=== PATIENT | female | born 1965 | race Caucasian/White ===

== ENCOUNTER 2016-08-20 04:28 | Inpatient (IN) | payer OTHER ==
[~2016-08-20] VITALS: Ht 152.4 cm; Wt 45.0 kg
[~2016-08-20 04:28] MED LIST: CLON2TAB15; METH-378
[2016-08-20 09:28] VITALS: PULSE 108
[2016-08-20 09:30] VITALS: BP 109/51; PULSE 113; RESP 18; Ht 152.4 cm; Wt 45.0 kg
[2016-08-20 09:58] VITALS: BP 102/74; RESP 20
--- NOTE | 2016-08-20 10:35 | PDOCDIS ---
Discharge Instructions CONDITION Patient Condition: Good HOME CARE INSTRUCTIONS: Diet Instructions: Regular ACTIVITY: Activity Restrictions: No Restrictions FOLLOW UP/APPOINTMENTS Appointments F/U WITH YOUR PCP IN 1-2 WEEKS LINNEA FUENTES Aug 20, 2016 10:34
[2016-08-20] MEDS ORDERED: ONDANSETRON 4 MG INJ IV PRN (11:00)
[2016-08-20] MEDS ORDERED: ALBUTEROL/IPRATROPIUM (NEB) 3 ML AMP HHN PRN (11:00)
[2016-08-20] MEDS ORDERED: NACL 0.9% 3 ML SYG IV SCH (11:00)
[2016-08-20] MEDS ORDERED: METHADONE (1 MG/ML 5 ML PO UD SYG) PO SCH ×2 (11:30)
[2016-08-20] MEDS ORDERED: METHADONE HCL 10 MG/ML (1ML) POSYG PO SCH (11:30)
[2016-08-20 11:48] VITALS: BP 94/63; RESP 22
[2016-08-20 12:24] VITALS: PULSE 112
--- NOTE | 2016-08-20 14:47 | PSY ---
Date/Time of Note Date/Time of Note DATE: 08/20/16 TIME: 14:41 Psychiatric Subjective Eval Consent Pt consented to telemedicine: Yes Subjective Evaluation Patient location: inpatient Chief Complaint: I am collapsing Reason for consult: Is patient stable for discharge History of present illness Patient was transferred to inpatient for respiratory issues. However, she appears medically stable and ready for discharge. But patient cannot report a plan for self care and consult was made. Patient states that some changed her DNA, she pleads the 5th, lithium can stay in your brain forever, FDA, Constitution and other non-sense statements. She is angry, loud and is a poor historian. She was not able to provide any plan for her own self care. Past psychiatric history States she had her "genetic molecules taken out of her as a child" while in a psychiatric hospital. And she has been "pumped up with antipsychotics." Hospitalization: yes Family History Unknown Medical history Unknown Allergies: Coded Allergies: Sulfa (Sulfonamide Antibiotics) (Verified Allergy, Mild, 12/07/10) Substance Abuse Prior substance abuse treatmen: Yes (Methadone) Social History Marital status: Level of education: Unknown DPA/Conservatorship: No Occupation/Skilled Nursing: Homeless. Psychiatric Objective Eval Mental Status Examination: Appearance: Poor Hygiene, Disheveled Eye Contact: Fair Psychomotor Activity: Agitated Behavior: Agitated Speech: Pressured, Loud AFFECT: Intense Mood: Irritable Though Process: FOI Thought Content: Delusions, Hallucinations Suicidal: No Homicidal: No On 72 hour hold: No Cognition: Alert Insight: Severe Judgement: Severe Attention Span: Distractible Assessment and Plan Assessment/Diagnosis [place] I: Unspecified Psychotic Disorder (possibly naomy versus schizoaffective, bipolar type) Recommendation/Plan Medication Management Recommend Zyprexa 5mg po qhs, first dose now, if patient will take. If will not take, consider Ativan to help control agitation while waiting for placement. Psychotherapy N/A Pt. Caregiver/Family Education N.A Follow-up/Disposition Recommend hold for grave disability and transfer to inpatient psychiatry. [id number] Recommendation: Place NAINA Mcnamara Aug 20, 2016 14:47
[2016-08-20 16:00] VITALS: PULSE 94
--- NOTE | 2016-08-20 16:39 | HP ---
DATE OF ADMISSION: 08/20/2016 CHIEF COMPLAINT: Shortness of breath. HISTORY OF PRESENT ILLNESS: The patient is a 50-year-old female with a history of what appears to b e schizophrenia as well as a heroin addiction. Patient is on methadone. Patient is not on any psyc hiatric medications. The patient was in [facility] and was diagnosed with COPD exacerbatio n and reportedly was requiring oxygen, but here at [facility] she has not been taking any o xygen and she is saturating well on room air. She has no active medical issues. The patient was ev aluated by tele/psych and was felt to suffer from possible schizoaffective disorder versus unspecifi ed psychiatric disorder. The patient is not felt to be stable for discharge to the streets as she i s a danger to herself. The patient is extremely psychotic at this time and is unable to provide any significant history. PAST MEDICAL HISTORY: Psychiatric disorder and heroin abuse, on methadone. PAST SURGICAL HISTORY: Unknown. HOME MEDICATIONS: Unknown. She denies taking any except for methadone. ALLERGIES: SULFA. FAMILY HISTORY: Unknown. SOCIAL HISTORY would be a history of heroin use, on methadone. Patient is reportedly homeless, but it is unclear. REVIEW OF SYSTEMS: A 12-point review of systems difficult to obtain secondary to her poor mentation . PHYSICAL EXAMINATION: VITAL SIGNS: Temperature is 98.4, pulse 112, respiratory rate is 22, BP is 94/63, saturation 96% on 2 liters. GENERAL: No acute distress, psychotic. HEENT: Normocephalic, atraumatic. LUNGS: Clear to auscultation. CARDIOVASCULAR: Regular rate and rhythm. ABDOMEN: Nondistended, nontender, soft. EXTREMITIES: No clubbing, cyanosis, or edema. LABORATORIES: Labs at [facility] were reportedly within normal limits. ASSESSMENT AND PLAN: 1. Psychiatric disorder. The patient has been evaluated by telemetry/psychiatry. It was felt that patient cannot to care for herself, hence she should be transferred to a psychiatric facility . fruit or nut farmworker is aware and PET team is to evaluate. Psychiatrist has started the patient on Zypr exa 5 mg p.o. at bedtime. If the patient will not take it then Ativan can be considered to help wit h agitation. The patient is reportedly not on any psychiatric medications as she states that the me dications mess with her head. 2. Chronic obstructive pulmonary disease. The patient may have a history of chronic obstructive pu lmonary disease, but currently, she is medically stable. She is not requiring oxygen and does not n eed any antibiotics or any steroids. Will give DuoNeb p.r.n. 3. Prophylaxis. Ambulation. Dictated By: LINNEA VILLALOBOS/MARYLOU Conf#: [id number] DID#: [id number]
[2016-08-21] MEDS ORDERED: METHADONE (1 MG/1 ML PO SYG) PO SCH (09:00)
== END 2016-08-20 18:23 | disposition left against medical advice (07) | DRG 192 ==
LOC: MS4 08:54 → PP2 18:11
PROVIDERS: ADMIT Internal Medicine; ATTEND Internal Medicine
DX: J44.9 Chronic obstructive pulmonary disease, unspecified (principal); F99 Mental disorder, not otherwise specified

== ENCOUNTER 2016-08-27 10:35 | Inpatient (IN) | payer OTHER ==
[~2016-08-27] VITALS: Ht 157.5 cm; Wt 32.5 kg
[2016-08-27] MEDS ORDERED: LEVALBUTEROL (NEB) 1.25 MG/0.5 ML AMP INH STA (10:57)
[2016-08-27] MEDS ORDERED: IPRATROPIUM (NEB) 0.5 MG/2.5 ML AMP NEB STA (10:57)
[2016-08-27] MEDS ORDERED: SOD CHLORIDE 0.9% 1,000 ML IV STA (10:57)
[2016-08-27] MEDS ORDERED: METHYLPREDNISOLONE 125 MG INJ IV STA (10:57)
[2016-08-27] MEDS ORDERED: OLANZAPINE (ODT) 5 MG TAB ODT ONE (11:00)
[2016-08-27] MEDS ORDERED: AZITHROMYCIN 500MG/NS (PMX) 250 ML IVPB ONE (11:30)
[2016-08-27] MEDS ORDERED: METHYLPREDNISOLONE 125 MG INJ IM ONE (12:00)
[2016-08-27] MEDS ORDERED: AZITHROMYCIN 250 MG TAB PO ONE (12:00)
[2016-08-27] MEDS ORDERED: LIDOCAINE 1% (MDV) 20 ML INJ SC ONE (12:00)
[2016-08-27] MEDS ORDERED: CLON2TAB3 PO (12:15)
[2016-08-27] MEDS ORDERED: METH10TA2 PO (12:16)
--- NOTE | 2016-08-27 12:21 | RADRPT ---
PROCEDURE: XR Chest. CLINICAL INDICATION: Asthma exacerbation TECHNIQUE: Single frontal view of the chest was obtained. COMPARISON: 02/04/2014 FINDINGS: The cardiomediastinal silhouette is normal size. There is mild to moderate aortic calcification. Pul monary vasculature is within normal limits. The lungs are clear. No signs of pleural fluid or pneumothorax are seen. The osseous structures and soft tissues are unre markable. The patient is status post left mastectomy. IMPRESSION: No evidence for active cardiopulmonary disease. Mild to moderate aortic calcification. RPTAT: HBST .John Comer MD, MD Date Time Electronically viewed and signed by .John Comer MD, on 08/27/2016 12:21 .T/
[2016-08-27 12:27] LABS: ADD SCAN DIFF NO
[2016-08-27] MEDS ORDERED: clonAZEPAM 0.5 MG TAB PO ONE (12:30)
[2016-08-27 12:32] LABS: BASOPHILS % 0.2 % (0.0-2.0); EOSINOPHILS # 0.1 10^3/ul (0.0-0.5); EOSINOPHILS % 0.3 % (0.0-7.0); HEMATOCRIT 46.3 % (37.0-47.0); HEMOGLOBIN 15.1 g/dl (12.0-16.0); LYMPHOCYTES # 1.8 10^3/ul (0.8-2.9); MEAN CORPUSCULAR HEMOGLOBIN 28.8 pg (29.0-33.0); MEAN CORPUSCULAR HGB CONC 32.6 g/dl (32.0-37.0); MEAN CORPUSCULAR VOLUME 88.4 fl (82.0-101.0); MONOCYTE # 1.1 10^3/ul (0.3-0.9); MONOCYTES % 5.6 % (0.0-11.0); NEUTROPHIL # 16.3 10^3/ul (1.6-7.5); NEUTROPHILS % 84.3 % (39.0-77.0); PLATELET COUNT 299 10^3/UL (140-415); RED BLOOD COUNT 5.24 10^6/ul (4.20-5.40); RED CELL DISTRIBUTION WIDTH 13.4 % (11.5-14.5); WHITE BLOOD COUNT 19.4 10^3/ul (4.8-10.8)
[2016-08-27 12:36] LABS: CHLORIDE 104 mmol/L (97-110)
[2016-08-27 12:37] LABS: POTASSIUM 4.3 mmol/L (3.5-5.1); SODIUM 147 mmol/L (135-144)
[2016-08-27 12:39] LABS: ANION GAP 17 (8-16); CARBON DIOXIDE 30 mmol/L (21-31); CREATININE 0.62 mg/dl (0.44-1.00)
[2016-08-27 12:40] LABS: BLOOD UREA NITROGEN 10 mg/dl (7-20); CALCIUM 9.5 mg/dl (8.4-10.2); GLUCOSE 118 mg/dl (70-220)
[2016-08-27 12:43] LABS: ACETAMINOPHEN < 10.0 ug/ml (10.0-30.0); ETHANOL < 10.0 mg/dl; SALICYLATE < 1.0 mg/dl (5.0-30.0)
[2016-08-27 12:54] LABS: TROPONIN-I < 0.012 ng/ml (0.00-0.12)
[2016-08-27] MEDS ORDERED: ACETAMINOPHEN 325 MG TAB PO PRN ×2 (13:00→14:00)
[2016-08-27] MEDS ORDERED: ONDANSETRON 4 MG INJ IV PRN ×2 (13:00→14:00)
--- NOTE | 2016-08-27 13:06 | ERA ---
ER Documentation Chief Complaint Date/Time DATE: 08/27/16 TIME: 13:04 Chief Complaint sob this morning after receiving her dose of methadone at the methadone i HPI Patient is a 50-year-old female with COPD who presents saying that she cannot breathe. Please note the history and physical exam is limited as the patient also appears to be having an acute psychosis. She says "they try to lie bottom eyes me and the dolls are trying to control me". She says that they are trying to get into her head through the dolls. Upon review of old medical records the patient has multiple visits to the ER for various complaints. It is difficult to obtain history otherwise. ROS All systems reviewed and are negative except as per history of present illness. Medications Home Meds Reported Medications Methadone Hcl* (Methadone*) 10 Mg Tab, 16 MG PO DAILY, TAB PER PT GETS RX AT [facility] 08/27/16 Clonazepam* (Clonazepam*) 2 Mg Tablet, 2 MG PO TID, TAB 08/27/16 Discontinued Reported Medications Clonazepam (Klonopin) 2 Mg Tablet 06/08/10 Methadone Hcl (Methadone) 10 Mg Tab 06/08/10 Allergies Allergies: Coded Allergies: Sulfa (Sulfonamide Antibiotics) (Verified Allergy, Mild, 12/07/10) PMhx/Soc History of Surgery: No Hx Neurological Disorder: No Hx Respiratory Disorders: Yes (copd per pt ) Hx Cardiac Disorders: No Hx Psychiatric Problems: Yes Hx Miscellaneous Medical Probl: Yes (may be living in her car, ) Hx Alcohol Use: No Hx Substance Use: Yes Hx Tobacco Use: No FmHx Family History: No diabetes Physical Exam Vitals Vital Signs Date Time Temp Pulse Resp B/P Pulse Ox O2 Delivery O2 Flow Rate FiO2 08/27/16 11:13 127 22 97 21 08/27/16 10:48 98.4 135 20 146/99 96 Room Air 08/27/16 10:45 98.2 135 20 205/79 94 Physical Exam Const: Acute psychosis Head: Atraumatic Eyes: Normal Conjunctiva ENT: Normal External Ears, Nose and Mouth. Neck: Full range of motion..~ No meningismus. Resp: Decreased breath sounds bilaterally Cardio: Tachycardic rate without murmur Abd: Soft, non tender, non distended. Normal bowel sounds Skin: No petechiae or rashes Back: No midline or flank tenderness Ext: No cyanosis, or edema Neur: Awake Psych: Acute psychosis Result Diagram: 08/27/16 1220 08/27/16 1220 Results 24 hrs Laboratory Tests Test 08/27/16 12:20 Acetaminophen Level < 10.0ug/ml Anion Gap 17 Basophils # 0.010^3/ul Basophils % 0.2% Blood Urea Nitrogen 10mg/dl Calcium Level 9.5mg/dl Carbon Dioxide Level 30mmol/L Chloride Level 104mmol/L Creatinine 0.62mg/dl Eosinophils # 0.110^3/ul Eosinophils % 0.3% Ethyl Alcohol Level < 10.0mg/dl Glucose Level 118mg/dl Hematocrit 46.3% Hemoglobin 15.1g/dl Lymphocytes # 1.810^3/ul Lymphocytes % 9.0% Mean Corpuscular Hemoglobin 28.8pg Mean Corpuscular Hemoglobin Concent 32.6g/dl Mean Corpuscular Volume 88.4fl Mean Platelet Volume 10.0fl Monocytes # 1.110^3/ul Monocytes % 5.6% Neutrophils # 16.310^3/ul Neutrophils % 84.3% Nucleated Red Blood Cells # 0.010^3/ul Nucleated Red Blood Cells % 0.0/100WBC Platelet Count 25265^3/UL Potassium Level 4.3mmol/L Red Blood Count 5.2410^6/ul Red Cell Distribution Width 13.4% Salicylates Level < 1.0mg/dl Sodium Level 147mmol/L Troponin I < 0.012ng/ml White Blood Count 19.410^3/ul Current Medications Medications (Trade) Dose Ordered Sig/Kallie Route PRN Reason Start Time Stop Time Status Last Admin Dose Admin Sodium Chloride (NS) 1,000 ml @ 1,000 mls/hr Q1H STAT IV 08/27/16 10:57 08/27/16 11:56 DC Ipratropium Duncan (Atrovent 0.02% (Neb)) 0.5 mg ONCE STAT NEB 08/27/16 10:57 08/27/16 10:59 DC 08/27/16 11:11 Methylprednisolone Sodium Succinate (Solu-Medrol) 125 mg ONCE STAT IV 08/27/16 10:57 08/27/16 11:40 DC Levalbuterol (Xopenex Neb) 1.25 mg ONCE STAT INH 08/27/16 10:57 08/27/16 10:59 DC 08/27/16 11:11 Olanzapine 5 mg 5 mg ONCE ONCE ODT 08/27/16 11:00 08/27/16 11:01 DC 08/27/16 12:31 Azithromycin (Zithromax 500mg/ NS (Pmx)) 250 ml @ 250 mls/hr ONCE ONCE IVPB 08/27/16 11:30 08/27/16 11:40 DC Methylprednisolone Sodium Succinate (Solu-Medrol) 125 mg ONCE ONCE IM 08/27/16 12:00 08/27/16 12:01 DC 08/27/16 12:32 Azithromycin (Zithromax) 500 mg ONCE ONCE PO 08/27/16 12:00 08/27/16 12:01 DC 08/27/16 12:32 Lidocaine (Xylocaine 1% (Mdv) 20 ml) 20 ml ONCE ONCE SC 08/27/16 12:00 08/27/16 12:01 DC Clonazepam (Klonopin) 1 mg ONCE ONCE PO 08/27/16 12:30 08/27/16 12:31 DC 08/27/16 12:31 Ondansetron HCl (Zofran Inj) 4 mg BRIDGE ORDER PRN IV NAUSEA AND/OR VOMITING 08/27/16 13:00 08/28/16 12:59 Acetaminophen (Tylenol Tab) 650 mg ER BRIDGE PRN PO MILD PAIN/FEVER 08/27/16 13:00 08/28/16 12:59 Procedures/MDM Chest x-ray pending at this time. Smoking Cessation Therapy: Pt. was lectured for greater than 3 minutes on the health risks of continued smoking and the benefits of cessation. Patient is a 50-year-old female with COPD who presents with what appears to be an acute COPD exacerbation. This is also complicated by the fact that she appears to have acute psychosis. She has had a tele-psychiatry evaluation and I gave Zyprexa and Klonopin for her psychosis. The patient was treated with Xopenex, Atrovent, Solu-Medrol, and Zithromax. Unfortunately she cannot be medically cleared at this time because of the COPD exacerbation and will need admission to the hospital. I spoke with Dr. Moya from the panel team for admission as [facility]. The patient will be admitted to a medical surgical bed. She will likely need psychiatric care after she is medically clear. Critical Care: Time: 35 minutes excluding all billable procedures. Treatments/Evaluations: Close monitoring and treatment of unstable vital signs, cardiorespiratory, and neurologic status, while maintaining tight balance of fluid, respiratory, and cardiac interventions. Departure Diagnosis: Primary Impression: COPD exacerbation Additional Impressions: Shortness of breath Psychosis Qualified Code: F29 - Psychosis, unspecified psychosis type Condition: EMMANUEL Miller MD Aug 27, 2016 13:06
[2016-08-27] MEDS ORDERED: OLANZAPINE 5 MG TAB PO ONE (14:00)
[2016-08-27] MEDS ORDERED: DOCUSATE SODIUM 100 MG CAP PO PRN (14:00)
[2016-08-27] MEDS ORDERED: ALBUTEROL/IPRATROPIUM (NEB) 3 ML AMP HHN PRN (14:00)
[2016-08-27] MEDS ORDERED: ACETAMINOPHEN 650 MG SUPP PR PRN (14:00)
[2016-08-27] MEDS ORDERED: NACL 0.9% 3 ML SYG IV SCH (14:00)
[2016-08-27] MEDS ORDERED: BISACODYL 10 MG SUPP PR PRN (14:00)
--- NOTE | 2016-08-27 15:06 | RADRPT ---
PROCEDURE: XR Chest. CLINICAL INDICATION: PICC placement. TECHNIQUE: Chest x-ray, single view. COMPARISON: 08/27/2016 at 1151 hours. FINDINGS: The cardiomediastinal silhouette is normal. Hyperinflation is present. The lungs are clear. A left upper extremity PICC is in place and terminates at the SVC/right atrial junction , which is satisf actory in position. Skeletal structures and upper abdomen are unremarkable. IMPRESSION: Satisfactory positioning of left upper extremity PICC. RPTAT: QQ .Neema Mcneal MD, MD Date Time Electronically viewed and signed by .Neema Mcneal MD, MD on 08/27/2016 15:06 .T/
--- NOTE | 2016-08-27 15:39 | HP ---
DATE OF ADMISSION: 08/27/2016 PARTS PICKER: Telemetry/Psychiatric HISTORY OF PRESENT ILLNESS: This is a 50-year-old female with past medical history of COPD, heroin abuse in remission on methadone, psychosis, schizophrenia who presented to [facility] this morning secondary to having shortness of breath after she received a dose of methadone. Th e patient's history is limited secondary to patient appears to have an acute psychosis and the patie nt is having hallucinations and delusion, stating that they have put bugs through her arms and other people are trying to control her. The patient denies having any chest pain, headache, dizziness, l ightheadedness. No change in visual acuity, diplopia, photophobia. No abdominal pain. The rest of the history is limited as stated above. PAST MEDICAL AND SURGICAL HISTORY: 1. History of heroin abuse. 2. Methadone 3. Schizophrenia. 4. History of psychosis. 5. Chronic obstructive pulmonary disease. 6. Nicotine dependency. MEDICATIONS: 1. Clonazepam. 2. Methadone. ALLERGIES: SULFA. FAMILY HISTORY: Noncontributory. REVIEW OF SYSTEMS: Limited. Otherwise, the 12 review of systems has been negative except for what was stated above HPI. PHYSICAL EXAMINATION: VITAL SIGNS: Temperature 98.4, pulse 127, respiration 22, blood pressure 146/99, oxygen 97% in room air. GENERAL APPEARANCE: The patient is sitting up in bed, very groggy, although the patient is able to follow commands. Body habitus within normal limit. EYES AND ENT: Conjunctivae and lids are normal. Pupils are normal. Extraocular normal. Hearing g rossly normal. Lips are normal. Oral mucosa is dry. NECK: Supple. Trachea is midline. No lymphadenopathy. RESPIRATORY: Effort is normal. Clear to auscultate bilaterally. CARDIOVASCULAR: Normal S1, S2. Regular rhythm and rate. No murmur, no bruits, no edema. Peripher al pulses, radial pulses palpable. Cap refill is normal. CHEST: Normal expansion of thorax during inspiration. GASTROINTESTINAL: Abdomen is soft, nontender, not distended. Bowel sounds present. No guarding, n o rebound. GENITOURINARY: Deferred. MUSCULOSKELETAL: Upper and lower extremities within normal limits. Full range of motion. NEUROLOGIC: The patient is awake. PSYCHIATRIC EXAMINATION: Mood and affect, the patient is having hallucination. She is oriented to self and place, although patient has been having hallucinations and delusions regarding that she is seeing dolls, and other people have place bugs inside of her body to control her. ASSESSMENT AND PLAN: 1. Chronic obstructive pulmonary disease exacerbation. 2. History of heroin abuse, on methadone. 3. Psychosis/schizophrenia. The patient will be started on Zyprexa that she used to be on, on prio r admissions as per telemetry/psychiatric recommendations. 3. For her COPD, the patient has been placed on DuoNeb. We will also place the patient on azithrom ycin and prednisone. 4. For deep venous thrombosis prophylaxis, placed the patient on Lovenox. 5. We will continue to monitor patient closely. Further recommendations, management, and treatment as per clinical course. Dictated By: DEBBIE BOURGEOIS/MARYLOU Conf#: [id number] DID#: [id number]
[2016-08-27] MEDS ORDERED: HEPARIN (10 UNITS/ML) 5ML SYG IV ONE (19:00)
[2016-08-27 20:36] VITALS: TEMP 98
[2016-08-27] MEDS: FAMOTIDINE 20 MG TAB PO SCH (21:07)
[2016-08-27] MEDS: clonAZEPAM 0.5 MG TAB PO SCH (21:07)
[2016-08-27 21:10] VITALS: Ht 157.5 cm; Wt 32.5 kg
[2016-08-27 22:00] VITALS: BP 122/74; RESP 20
[2016-08-27 23:01] LABS: BENZODIAZEPINES Positive (NEGATIVE)
[2016-08-27 23:04] LABS: BARBITURATES Negative (NEGATIVE); CANNABINOIDS Negative (NEGATIVE); COCAINE Negative (NEGATIVE); OPIATES Positive (NEGATIVE)
[2016-08-28] MEDS: LORAZEPAM 2 MG INJ IV PRN ×3 (00:17→13:14)
[2016-08-28 06:12] LABS: ADD SCAN DIFF NO
[2016-08-28 06:19] LABS: ABNORMAL IP MESSAGE 1; BASOPHILS % 0.2 % (0.0-2.0); HEMATOCRIT 38.3 % (37.0-47.0); HEMOGLOBIN 12.4 g/dl (12.0-16.0); LYMPHOCYTES # 1.3 10^3/ul (0.8-2.9); LYMPHOCYTES % 5.5 % (15.0-51.0); MEAN CORPUSCULAR HEMOGLOBIN 28.7 pg (29.0-33.0); MEAN CORPUSCULAR HGB CONC 32.4 g/dl (32.0-37.0); MEAN CORPUSCULAR VOLUME 88.7 fl (82.0-101.0); MEAN PLATELET VOLUME 11.2 fl (7.4-10.4); MONOCYTE # 1.4 10^3/ul (0.3-0.9); MONOCYTES % 5.7 % (0.0-11.0); NEUTROPHILS % 87.6 % (39.0-77.0); PLATELET COUNT 260 10^3/UL (140-415); RED BLOOD COUNT 4.32 10^6/ul (4.20-5.40); RED CELL DISTRIBUTION WIDTH 13.6 % (11.5-14.5); WHITE BLOOD COUNT 23.9 10^3/ul (4.8-10.8)
[2016-08-28 06:36] LABS: ALBUMIN 3.5 g/dl (3.3-4.9)
[2016-08-28 06:37] LABS: POTASSIUM 4.7 mmol/L (3.5-5.1)
[2016-08-28 06:39] LABS: ALBUMIN/GLOBULIN RATIO 1.06; BILIRUBIN,INDIRECT 0.5 mg/dl (0-1.1); BILIRUBIN,TOTAL 0.5 mg/dl (0.2-1.3); CREATININE 0.65 mg/dl (0.44-1.00); TOTAL PROTEIN 6.8 g/dl (6.1-8.1)
[2016-08-28 06:40] LABS: CALCIUM 9.1 mg/dl (8.4-10.2); MAGNESIUM 1.9 mg/dl (1.7-2.5)
[2016-08-28 07:25] VITALS: BP 93/65; RESP 18
[2016-08-28] MEDS: FAMOTIDINE 20 MG TAB PO SCH ×2 (07:45→21:00)
[2016-08-28] MEDS: clonAZEPAM 0.5 MG TAB PO SCH ×3 (07:45→21:00)
[2016-08-28] MEDS: OLANZAPINE 5 MG TAB PO SCH ×2 (08:40→09:00)
[2016-08-28] MEDS: ENOXAPARIN 40 MG/0.4 ML SYG SC SCH (08:42)
[2016-08-28] MEDS: METHADONE (1 MG/ML 5 ML PO UD SYG) PO SCH (10:40)
--- NOTE | 2016-08-28 11:38 | PSY ---
Date/Time of Note Date/Time of Note DATE: 08/28/16 TIME: 11:28 Psychiatric Subjective Eval Consent Pt consented to telemedicine: Yes Subjective Evaluation Patient location: emergency Chief Complaint: sob this morning after receiving her dose of methadone [facility] Reason for consult: hallucinations History of present illness patient is a 50 yo female with PPH Of depression, anxiety and opiate abuse on methadone who was sent to the ER from her methadone clinic where she was disorganized and psychotic, IN the ER she continued to be disorganized and she was admitted to the medical unit due to COPD exacerbation. During the interview , she is totally delusional, talking about witnessing a friend being cooked in a microwave and her organs being removed from her body and having had a lobotomy and a chip put in her head with people controlling her, she is responding to internal stimuli, pressured, with flight of ideas, illogical, yelling and cursing at staff. denies any si or hi. Past psychiatric history past psych admission yes Family History denies Medical history Problems Medical Problems: (1) COPD exacerbation Status: Acute (2) Psychosis Status: Acute (3) Shortness of breath Status: Acute Allergies: Coded Allergies: Sulfa (Sulfonamide Antibiotics) (Verified Allergy, Mild, 12/07/10) Substance Abuse Substance abuse history: Yes Prior substance abuse treatmen: Yes Social History Marital status: single Level of education: hs DPA/Conservatorship: No Occupation/Fdc: unemployed Psychiatric Objective Eval Review of Systems: Review of Systems: Not Applicable Physical Examination: Physical Examination: Applicable Sleep: Insomnia Appetite: Decreased Energy: Decreased Interest: Decreased Mental Status Examination: Appearance: Disheveled Eye Contact: Good Psychomotor Activity: Agitated Behavior: Cooperative, Hostile Speech: Disorganized AFFECT: Libile Mood: Irritable Though Process: Loose Thought Content: Delusions Suicidal: No Homicidal: No On 72 hour hold: No Orientation: x1 Insight: Impared Judgement: Impared Attention Span: Distractible Laboratory Results Laboratory Tests Test 08/27/16 12:20 08/27/16 22:34 08/28/16 04:45 Acetaminophen Level < 10.0ug/ml Anion Gap Basophils # 0.010^3/ul 0.010^3/ul Basophils % 0.2% 0.2% Blood Urea Nitrogen 10mg/dl 21mg/dl Calcium Level 9.5mg/dl 9.1mg/dl Carbon Dioxide Level 30mmol/L 30mmol/L Chloride Level 104mmol/L 103mmol/L Creatinine 0.62mg/dl 0.65mg/dl Eosinophils # 0.110^3/ul 0.010^3/ul Eosinophils % 0.3% 0.0% Ethyl Alcohol Level < 10.0mg/dl Glucose Level 118mg/dl 98mg/dl Hematocrit 46.3% 38.3% Hemoglobin 15.1g/dl 12.4g/dl Lymphocytes # 1.810^3/ul 1.310^3/ul Lymphocytes % 9.0% 5.5% Mean Corpuscular Hemoglobin 28.8pg 28.7pg Mean Corpuscular Hemoglobin Concent 32.6g/dl 32.4g/dl Mean Corpuscular Volume 88.4fl 88.7fl Mean Platelet Volume 10.0fl 11.2fl Monocytes # 1.110^3/ul 1.410^3/ul Monocytes % 5.6% 5.7% Neutrophils # 16.310^3/ul 21.010^3/ul Neutrophils % 84.3% 87.6% Nucleated Red Blood Cells # 0.010^3/ul 0.010^3/ul Nucleated Red Blood Cells % 0.0/100WBC 0.0/100WBC Platelet Count 09935^3/UL 57932^3/UL Potassium Level 4.3mmol/L 4.7mmol/L Red Blood Count 5.2410^6/ul 4.3210^6/ul Red Cell Distribution Width 13.4% 13.6% Salicylates Level < 1.0mg/dl Sodium Level 147mmol/L 141mmol/L Troponin I < 0.012ng/ml White Blood Count 19.410^3/ul 23.910^3/ul Urine Amphetamines Screen Negative Urine Barbiturates Negative Urine Benzodiazepines Screen Positive Urine Cannabinoids Negative Urine Cocaine Screen Negative Urine Opiates Screen Positive Alanine Aminotransferase (ALT/SGPT) 22IU/L Albumin 3.5g/dl Albumin/Globulin Ratio 1.06 Alkaline Phosphatase 62IU/L Aspartate Amino Transf (AST/SGOT) 25IU/L Direct Bilirubin 0.00mg/dl Globulin 3.30g/dl Indirect Bilirubin 0.5mg/dl Magnesium Level 1.9mg/dl Total Bilirubin 0.5mg/dl Total Protein 6.8g/dl Assessment and Plan Assessment/Diagnosis [place] I: psychosis nos [place] II: deferred [place] III: as per record [place] IV: poor social support [place] V: gaf 25 Recommendation/Plan Medication Management haldol 5 mg im with ativan 2 mg m and benadryl 50 mg im stat for acute psychosis and agitation and then po tid until psychosis resolved Follow-up/Disposition transfer patient to psych unit once medically cleared due to grave disability, she needs to be put on a 5150 hold for GD, DTS and DTO Patient cannot be treated at a lower level of care today due to GRAVE DISABLITY including an inability to carry out basic transactions necessary for survival in these areas and as evidenced by these behaviors: - Unable to seek out Food, Unable to seek out Clothing, Unable to seek out Mcfp, Severe Financial Incompetence, Severe Failure to Adjust in the Community, Severe Incompetence in Regards to Health Self-Management - Patient is labile,intrusive and socially inappropriate with personal boundaries - Confused, disoriented and/or grossly unable to distinguish reality from illusion -Requires near constant monitoring to prevent inadvertent danger to self and others -No family members willing and able to care for patient in the community with this mental state 5150 Recommendation: INOCENTE Regalado MD Aug 28, 2016 11:38
[2016-08-28 12:46] VITALS: BP 128/88; PULSE 93; RESP 18
[2016-08-28] MEDS ORDERED: HALOPERIDOL 5 MG INJ IM PRN (13:00)
--- NOTE | 2016-08-28 14:48 | PN ---
Date/Time of Note Date/Time of Note DATE: 08/28/16 TIME: 14:43 Assessment/Plan VTE Prophylaxis VTE Prophylaxis Intervention: SCD's Lines/Catheters IV [facility] Type (from [facility]): PICC Line Central line still needed: Yes Urinary Cath still in place: No Assessment/Plan Chief Complaint/Hosp Course ASSESSMENT AND PLAN: 1. Chronic obstructive pulmonary disease exacerbation. Continue breathing treatment as needed 2. History of heroin abuse, on methadone. 3. Psychosis/schizophrenia. The patient will be started on Zyprexa , status post evaluation by telemetry psych, has been refusing her meds 4. For deep venous thrombosis prophylaxis, placed the patient on Lovenox. We will continue to monitor patient closely. Further recommendations, management, and treatment as per clinical course. Problems: Subjective 24 Hr Interval Summary Free Text/Dictation Patient continues to have episodes of hallucinations and delusions Has been seen and evaluated by telemetry psych She has been refusing her psych medications Exam/Review of Systems Vital Signs Vitals Vital Signs Date Time Temp Pulse Resp B/P Pulse Ox O2 Delivery O2 Flow Rate FiO2 08/28/16 12:46 93 18 128/88 08/28/16 07:25 97.5 95 08/27/16 20:36 Nasal Cannula 2.0 08/27/16 11:13 21 Intake and Output 08/27/16 08/27/16 08/28/16 15:00 23:00 07:00 Intake Total 600 ml Balance 600 ml Exam General: The patient is well-developed, Not in acute distress. HEENT: Atraumatic, normocephalic. The pupils are equal and round . Neck: Supple with full range of motion. Chest: Normal expansion of the thorax during inspiration Lungs: Clear to auscultation bilaterally Heart: Normal S1-S2, Regular rhythm and rate. Abdomen: Soft , nontender, nondistended , bowel sounds are present. Extremities: Normal to inspection, no edema no cyanosis Neurologic: The patient is awake, . Psych: Frequent hallucinations and delusions Results Result Diagram: 08/28/16 0445 08/28/16 0445 Results 24 hrs Laboratory Tests Test 08/27/16 22:34 08/28/16 04:45 Urine Amphetamines Screen Negative Urine Barbiturates Negative Urine Benzodiazepines Screen Positive Urine Cannabinoids Negative Urine Cocaine Screen Negative Urine Opiates Screen Positive Alanine Aminotransferase (ALT/SGPT) 22 Albumin 3.5 Albumin/Globulin Ratio 1.06 Alkaline Phosphatase 62 Anion Gap 13 Aspartate Amino Transf (AST/SGOT) 25 Basophils # 0.0 Basophils % 0.2 Blood Urea Nitrogen 21 #H Calcium Level 9.1 Carbon Dioxide Level 30 Chloride Level 103 Creatinine 0.65 Direct Bilirubin 0.00 Eosinophils # 0.0 Eosinophils % 0.0 Globulin 3.30 H Glucose Level 98 Hematocrit 38.3 Hemoglobin 12.4 Indirect Bilirubin 0.5 Lymphocytes # 1.3 Lymphocytes % 5.5 L Magnesium Level 1.9 Mean Corpuscular Hemoglobin 28.7 L Mean Corpuscular Hemoglobin Concent 32.4 Mean Corpuscular Volume 88.7 Mean Platelet Volume 11.2 H Monocytes # 1.4 H Monocytes % 5.7 Neutrophils # 21.0 H Neutrophils % 87.6 H Nucleated Red Blood Cells # 0.0 Nucleated Red Blood Cells % 0.0 Platelet Count 260 Potassium Level 4.7 Red Blood Count 4.32 Red Cell Distribution Width 13.6 Sodium Level 141 Total Bilirubin 0.5 Total Protein 6.8 White Blood Count 23.9 #H Medications Medications Current Medications Olanzapine (Zyprexa) 5 mg DAILY PO ; Start 08/28/16 at 09:00 Clonazepam (Klonopin) 2 mg TID PO Last administered on 08/28/16 11:47; Admin Dose 2 MG; Start 08/27/16 at 21:00 Methadone HCl (Methadone Liq) 16 mg DAILY PO Last administered on 08/28/16 10: 40; Admin Dose 16 MG; Start 08/28/16 at 10:30 Ondansetron HCl (Zofran Inj) 4 mg Q6H PRN IV NAUSEA AND/OR VOMITING; Start 06/03 at 14:00 Acetaminophen (Tylenol Tab) 650 mg Q6H PRN PO PAIN LEVEL 1-3 OR FEVER; Start at 14:00 Acetaminophen (Tylenol Supp) 650 mg Q6H PRN [place] PAIN LEVEL 1-3 OR FEVER; Start 08/27/16 at 14:00 Acetaminophen/ Hydrocodone Bitart ([place] (5/325)) 1 tab Q6H PRN PO MODERATE PAIN LEVEL 4-6; Start 08/27/16 at 14:00 Docusate Sodium (Colace) 100 mg Q12H PRN PO CONSTIPATION; Start 08/27/16 at 14: 00 Bisacodyl (Dulcolax Supp) 10 mg DAILY PRN [place] CONSTIPATION; Start 08/27/16 at 14 :00 Famotidine (Pepcid) 20 mg Q12 PO Last administered on 08/28/16 07:45; Admin Dose 20 MG; Start 08/27/16 at 21:00 Enoxaparin Sodium (Lovenox) 40 mg DAILY SC ; Start 08/28/16 at 09:00 Lorazepam (Ativan) 0.5 mg Q6H PRN IV Anxiety Last administered on 08/28/16 13: 14; Admin Dose 0.5 MG; Start 08/28/16 at 00:30 Haloperidol (Haldol) 5 mg Q8 PRN IM AGITATION; Start 08/28/16 at 13:00 Diphenhydramine HCl (Benadryl) 50 mg Q8 PRN IM SLEEP; Start 08/28/16 at 13:00 Lorazepam (Ativan) 2 mg Q8 PRN IM AGITATION; Start 08/28/16 at 13:00 DEBBIE BARON MD Aug 28, 2016 14:47
[2016-08-29] VITALS (11 sets, daily range): BP systolic 104–125; BP diastolic 55–80; PULSE 73–103; RESP 17–20
[2016-08-29] MEDS: LORAZEPAM 2 MG INJ IV PRN ×2 (00:18→05:57)
[2016-08-29] MEDS: clonAZEPAM 0.5 MG TAB PO SCH ×4 (00:26→20:21)
[2016-08-29] MEDS: LORAZEPAM 2 MG INJ IM PRN (02:14)
[2016-08-29] MEDS: DIPHENHYDRAMINE 50 MG INJ IM PRN (02:17)
[2016-08-29 06:59] LABS: ADD SCAN DIFF NO
[2016-08-29 07:04] LABS: BASOPHILS % 0.2 % (0.0-2.0); EOSINOPHILS # 0.1 10^3/ul (0.0-0.5); EOSINOPHILS % 1.1 % (0.0-7.0); HEMATOCRIT 37.7 % (37.0-47.0); HEMOGLOBIN 11.8 g/dl (12.0-16.0); LYMPHOCYTES # 3.2 10^3/ul (0.8-2.9); MEAN CORPUSCULAR HEMOGLOBIN 28.7 pg (29.0-33.0); MEAN CORPUSCULAR HGB CONC 31.3 g/dl (32.0-37.0); MEAN CORPUSCULAR VOLUME 91.7 fl (82.0-101.0); MONOCYTE # 0.7 10^3/ul (0.3-0.9); MONOCYTES % 6.6 % (0.0-11.0); NEUTROPHIL # 6.9 10^3/ul (1.6-7.5); NEUTROPHILS % 62.8 % (39.0-77.0); PLATELET COUNT 176 10^3/UL (140-415); RED BLOOD COUNT 4.11 10^6/ul (4.20-5.40)
[2016-08-29] MEDS: ENOXAPARIN 40 MG/0.4 ML SYG SC SCH (09:00)
[2016-08-29] MEDS: FAMOTIDINE 20 MG TAB PO SCH ×2 (09:46→20:21)
[2016-08-29] MEDS: OLANZAPINE 5 MG TAB PO SCH (09:46)
[2016-08-29] MEDS: METHADONE (1 MG/ML 5 ML PO UD SYG) PO SCH (09:48)
--- NOTE | 2016-08-29 13:34 | PDOCDIS ---
Discharge Instructions CONDITION Patient Condition: Fair HOME CARE INSTRUCTIONS: Special Diet: regular ACTIVITY: Activity Restrictions: No Restrictions FOLLOW UP/APPOINTMENTS Appointments Follow-up with psychiatrist as outpatient DEBBIE BARON MD Aug 29, 2016 13:33
[2016-08-29] MEDS ORDERED: DOCU-216 PO (13:35)
[2016-08-29] MEDS ORDERED: OLAN5TAB5 PO (13:35)
[2016-08-29] MEDS ORDERED: LORA2VIA3 IM (13:35)
[2016-08-29] MEDS ORDERED: ADV25050 INHALATION (13:40)
[2016-08-29] MEDS ORDERED: ALBU8.5H3 INH (13:40)
--- NOTE | 2016-08-29 14:21 | DS ---
DATE OF ADMISSION: 08/27/2016 DATE OF DISCHARGE: 08/29/2016 ACCOUNT ANALYST: Telepsych, Leeann Carmona MD DIAGNOSES: 1. Acute psychosis. 2. History of schizophrenia. 3. Chronic obstructive pulmonary disease. MEDICATIONS: 1. Colace. 2. Lorazepam 3. Zyprexa. 4. Clonazepam. 5. Methadone. 6. ProAir HFA. 7. Advair. ALLERGIES: SULFA. DISPOSITION: To acute psych [facility]. HOSPITAL COURSE: This is a 50-year-old female with past medical history of COPD, [place], psychosis and schizophrenia, who presented to [facility] ond[facility] to having shortness of breath after she received a dose of methadone. The history was limite d secondary to the patient appears to have acute psychosis and was having hallucinations and delusio ns. The patient upon arrival to emergency room, was treated with Haldol and Telepsych was consulted . As per their evaluation, the patient was placed on Haldol 5 mg with Ativan 2 mg with Benadryl. S he has been placed on 5150 hold and has been planned to be transferred to psychiatric unit. Regardi ng her shortness of breath, patient was placed on breathing treatment via albuterol. Her oxygen sat uration has been normal. She has not required any oxygen during this course of hospitalization Ther e is no wheezing or rales on the lung exam. Social service and foster care case manager were consulted. The aileen friend has been accepted to psychiatric facility. At this time, patient is medically stable to be tr ansferred to psychiatric facility for further evaluation and psychiatric treatment. Dictated By: DEBBIE BARON MD PN/NTS Conf#: [id number] DID#: [id number]
[2016-08-29] MEDS: HYDROCODONE/APAP (5/325) TAB PO PRN (20:22)
[2016-08-30] VITALS (11 sets, daily range): BP systolic 89–131; BP diastolic 51–76; PULSE 64–104; RESP 18–20
[2016-08-30] MEDS: LORAZEPAM 2 MG INJ IM PRN (01:28)
[2016-08-30] MEDS: DIPHENHYDRAMINE 50 MG INJ IM PRN (03:32)
[2016-08-30] MEDS: HYDROCODONE/APAP (5/325) TAB PO PRN ×2 (03:32→22:26)
[2016-08-30] MEDS: ENOXAPARIN 40 MG/0.4 ML SYG SC SCH ×2 (09:00→10:20)
[2016-08-30] MEDS: OLANZAPINE 5 MG TAB PO SCH (10:12)
[2016-08-30] MEDS: FAMOTIDINE 20 MG TAB PO SCH ×2 (10:12→22:26)
[2016-08-30] MEDS: clonAZEPAM 0.5 MG TAB PO SCH ×3 (10:12→22:26)
[2016-08-30] MEDS: METHADONE (1 MG/ML 5 ML PO UD SYG) PO SCH (10:27)
--- NOTE | 2016-08-30 12:09 | PN ---
Date/Time of Note Date/Time of Note DATE: 08/30/16 TIME: 12:07 Assessment/Plan VTE Prophylaxis VTE Prophylaxis Intervention: SCD's Lines/Catheters IV [facility] Type (from [facility]): PICC Line Central line still needed: Yes Urinary Cath still in place: No Assessment/Plan Chief Complaint/Hosp Course ASSESSMENT AND PLAN: 1. Chronic obstructive pulmonary disease exacerbation. Continue breathing treatment as needed 2. History of heroin abuse, on methadone. 3. Psychosis/schizophrenia. The patient will be started on Zyprexa , status post evaluation by telemetry psych, has been refusing her meds 4. For deep venous thrombosis prophylaxis, placed the patient on Lovenox. We will continue to monitor patient closely. Further recommendations, management, and treatment as per clinical course. Patient is stable as medical standpoint to be transferred to psych unit Problems: Subjective 24 Hr Interval Summary Free Text/Dictation No acute changes Patient continues to have delusions and hallucinations Has had episodes of agitation Exam/Review of Systems Vital Signs Vitals Vital Signs Date Time Temp Pulse Resp B/P Pulse Ox O2 Delivery O2 Flow Rate FiO2 08/30/16 12:04 98.2 94 18 93/61 98 08/27/16 20:36 Nasal Cannula 2.0 08/27/16 11:13 21 Intake and Output 08/29/16 08/29/16 08/30/16 15:00 23:00 07:00 Intake Total 1260 ml 1000 ml Balance 1260 ml 1000 ml Exam General: The patient is underweight, Not in acute distress. HEENT: Atraumatic, normocephalic. The pupils are equal and round . Neck: Supple with full range of motion. Chest: Normal expansion of the thorax during inspiration Lungs: Clear to auscultation bilaterally Heart: Normal S1-S2, Regular rhythm and rate. Abdomen: Soft , nontender, nondistended , bowel sounds are present. Extremities: Normal to inspection, no edema no cyanosis Neurologic/mood and affect: Hallucinations,The patient is awake, alert Results Result Diagram: 08/29/16 0555 08/28/16 0445 Medications Medications Current Medications Olanzapine (Zyprexa) 5 mg DAILY PO Last administered on 08/30/16 10:12; Admin Dose 5 MG; Start 08/28/16 at 09:00 Clonazepam (Klonopin) 2 mg TID PO Last administered on 08/30/16 10:12; Admin Dose 2 MG; Start 08/27/16 at 21:00 Methadone HCl (Methadone Liq) 16 mg DAILY PO Last administered on 08/30/16 10: 27; Admin Dose 16 MG; Start 08/28/16 at 10:30 Ondansetron HCl (Zofran Inj) 4 mg Q6H PRN IV NAUSEA AND/OR VOMITING; Start 06/03 at 14:00 Acetaminophen (Tylenol Tab) 650 mg Q6H PRN PO PAIN LEVEL 1-3 OR FEVER; Start at 14:00 Acetaminophen (Tylenol Supp) 650 mg Q6H PRN [place] PAIN LEVEL 1-3 OR FEVER; Start 08/27/16 at 14:00 Acetaminophen/ Hydrocodone Bitart ([place] (5/325)) 1 tab Q6H PRN PO MODERATE PAIN LEVEL 4-6 Last administered on 08/30/16 03:32; Admin Dose 1 TAB; Start 06/03 at 14:00 Docusate Sodium (Colace) 100 mg Q12H PRN PO CONSTIPATION; Start 08/27/16 at 14: 00 Bisacodyl (Dulcolax Supp) 10 mg DAILY PRN [place] CONSTIPATION; Start 08/27/16 at 14 :00 Famotidine (Pepcid) 20 mg Q12 PO Last administered on 08/30/16 10:12; Admin Dose 20 MG; Start 08/27/16 at 21:00 Enoxaparin Sodium (Lovenox) 40 mg DAILY SC ; Start 08/28/16 at 09:00 Haloperidol (Haldol) 5 mg Q8 PRN IM AGITATION Last administered on 08/29/16 02 :16; Admin Dose 5 MG; Start 08/28/16 at 13:00 Diphenhydramine HCl (Benadryl) 50 mg Q8 PRN IM SLEEP Last administered on 03:32; Admin Dose 50 MG; Start 08/28/16 at 13:00 Lorazepam (Ativan) 2 mg Q8 PRN IM AGITATION Last administered on 08/30/16 01: 28; Admin Dose 2 MG; Start 08/28/16 at 13:00 Lorazepam (Ativan) 1 mg Q3 PRN IV agitation Last administered on 08/29/16 05: 57; Admin Dose 1 MG; Start 08/29/16 at 02:30 DEBBIE BARON MD Aug 30, 2016 12:09
[2016-08-31] VITALS: BP 105/69; PULSE 100; RESP 20
[2016-08-31] MEDS: LORAZEPAM 2 MG INJ IV PRN (04:03)
[2016-08-31 07:30] VITALS: BP 97/71; RESP 18
[2016-08-31] MEDS: ENOXAPARIN 40 MG/0.4 ML SYG SC SCH (09:00)
[2016-08-31] MEDS: FAMOTIDINE 20 MG TAB PO SCH ×2 (10:11→20:49)
[2016-08-31] MEDS: clonAZEPAM 0.5 MG TAB PO SCH ×3 (10:12→20:49)
[2016-08-31] MEDS: OLANZAPINE 5 MG TAB PO SCH (10:12)
[2016-08-31] MEDS: METHADONE (1 MG/ML 5 ML PO UD SYG) PO SCH (10:14)
[2016-08-31 10:20] VITALS: BP 92/71; PULSE 108
[2016-08-31] MEDS ORDERED: GUAIFENESIN 20 MG/ML 5ML CUP PO PRN (15:30)
[2016-08-31] MEDS: HYDROCODONE/APAP (5/325) TAB PO PRN ×2 (15:32→22:39)
--- NOTE | 2016-08-31 16:12 | PN ---
Date/Time of Note Date/Time of Note DATE: 08/31/16 TIME: 16:10 Assessment/Plan VTE Prophylaxis VTE Prophylaxis Intervention: SCD's Lines/Catheters [facility] PICC Line Central line still needed: Yes Urinary Cath still in place: No Assessment/Plan Chief Complaint/Hosp Course ASSESSMENT AND PLAN: 1. Chronic obstructive pulmonary disease exacerbation. Continue breathing treatment as needed 2. History of heroin abuse, on methadone. 3. Psychosis/schizophrenia. The patient will be started on Zyprexa , status post evaluation by telemetry psych, has been refusing her meds 4. For deep venous thrombosis prophylaxis, placed the patient on Lovenox. We will continue to monitor patient closely. Further recommendations, management, and treatment as per clinical course. Patient is stable as medical standpoint to be transferred to psych unit Problems: Subjective 24 Hr Interval Summary Free Text/Dictation Waiting for placement Denies any chest pain or shortness of breath Continues to have hallucinations and delusions Noncompliance with medical management Exam/Review of Systems Vital Signs Vitals Vital Signs Date Time Temp Pulse Resp B/P Pulse Ox O2 Delivery O2 Flow Rate FiO2 08/31/16 10:20 97.9 108 92/71 95 Room Air 08/31/16 00:00 20 08/27/16 20:36 2.0 08/27/16 11:13 21 Intake and Output 08/30/16 08/30/16 08/31/16 15:00 23:00 07:00 Intake Total 1200 ml 450 ml Balance 1200 ml 450 ml Exam General: The patient is well-developed, Not in acute distress. HEENT: Atraumatic, normocephalic. The pupils are equal and round . Neck: Supple with full range of motion. Chest: Normal expansion of the thorax during inspiration Lungs: Clear to auscultation bilaterally Heart: Normal S1-S2, Regular rhythm and rate. Abdomen: Soft , nontender, nondistended , bowel sounds are present. Extremities: Normal to inspection, no edema no cyanosis Neurologic: Episodes of hallucination,The patient is awake, alert Results Result Diagram: 08/29/16 0555 08/28/16 0445 Medications Medications Current Medications Olanzapine (Zyprexa) 5 mg DAILY PO Last administered on 08/31/16t 10:12; Admin Dose 5 MG; Start 08/28/16 at 09:00 Clonazepam (Klonopin) 2 mg TID PO Last administered on 08/31/16 12:30; Admin Dose 2 MG; Start 08/27/16 at 21:00 Methadone HCl (Methadone Liq) 16 mg DAILY PO Last administered on 08/31/16 10: 14; Admin Dose 16 MG; Start 08/28/16 at 10:30 Ondansetron HCl (Zofran Inj) 4 mg Q6H PRN IV NAUSEA AND/OR VOMITING; Start 06/03 at 14:00 Acetaminophen (Tylenol Tab) 650 mg Q6H PRN PO PAIN LEVEL 1-3 OR FEVER; Start at 14:00 Acetaminophen (Tylenol Supp) 650 mg Q6H PRN [place] PAIN LEVEL 1-3 OR FEVER; Start 08/27/16 at 14:00 Acetaminophen/ Hydrocodone Bitart ([place] (5/325)) 1 tab Q6H PRN PO MODERATE PAIN LEVEL 4-6 Last administered on 08/31/16 15:32; Admin Dose 1 TAB; Start 06/03 at 14:00 Docusate Sodium (Colace) 100 mg Q12H PRN PO CONSTIPATION; Start 08/27/16 at 14: 00 Bisacodyl (Dulcolax Supp) 10 mg DAILY PRN [place] CONSTIPATION; Start 08/27/16 at 14 :00 Famotidine (Pepcid) 20 mg Q12 PO Last administered on 08/31/16 10:11; Admin Dose 20 MG; Start 08/27/16 at 21:00 Enoxaparin Sodium (Lovenox) 40 mg DAILY SC ; Start 08/28/16 at 09:00 Haloperidol (Haldol) 5 mg Q8 PRN IM AGITATION Last administered on 08/29/16 02 :16; Admin Dose 5 MG; Start 08/28/16 at 13:00 Diphenhydramine HCl (Benadryl) 50 mg Q8 PRN IM SLEEP Last administered on 03:32; Admin Dose 50 MG; Start 08/28/16 at 13:00 Lorazepam (Ativan) 2 mg Q8 PRN IM AGITATION Last administered on 08/30/16 01: 28; Admin Dose 2 MG; Start 08/28/16 at 13:00 Lorazepam (Ativan) 1 mg Q3 PRN IV agitation Last administered on 08/31/16t 04: 03; Admin Dose 1 MG; Start 08/29/16 at 02:30 Guaifenesin (Robitussin Liquid Cup) 200 mg Q6H PRN PO COUGH; Start 08/31/16 at 15:30 DEBBIE BARON MD Aug 31, 2016 16:11
[2016-08-31 20:00] VITALS: BP 93/75; RESP 20
[2016-09-01] MEDS: OLANZAPINE 5 MG TAB PO SCH ×2 (08:48→08:55)
[2016-09-01] MEDS: FAMOTIDINE 20 MG TAB PO SCH ×2 (08:48→20:09)
[2016-09-01] MEDS: clonAZEPAM 0.5 MG TAB PO SCH ×3 (08:48→20:09)
[2016-09-01] MEDS: METHADONE (1 MG/ML 5 ML PO UD SYG) PO SCH (08:49)
[2016-09-01] MEDS: ENOXAPARIN 40 MG/0.4 ML SYG SC SCH (08:50)
[2016-09-01] MEDS: NICOTINE (14 MG/24 HR) PATCH TRANSDERM SCH (08:51)
[2016-09-01 09:19] VITALS: BP 100/68; RESP 18
--- NOTE | 2016-09-01 12:22 | PN ---
Date/Time of Note Date/Time of Note DATE: 09/01/16 TIME: 12:20 Assessment/Plan VTE Prophylaxis VTE Prophylaxis Intervention: SCD's Lines/Catheters IV Catheter Type (from [facility]): PICC Line Central line still needed: Yes Urinary Cath still in place: No Assessment/Plan Chief Complaint/Hosp Course ASSESSMENT AND PLAN: 1. Chronic obstructive pulmonary disease exacerbation. Continue breathing treatment as needed 2. History of heroin abuse, on methadone. 3. Psychosis/schizophrenia. The patient will be started on Zyprexa , status post evaluation by telemetry psych, has been refusing her meds 4. For deep venous thrombosis prophylaxis, placed the patient on Lovenox. We will continue to monitor patient closely. Further recommendations, management, and treatment as per clinical course. Patient is stable as medical standpoint to be transferred to psych unit Problems: Subjective 24 Hr Interval Summary Free Text/Dictation Waiting for psych units acceptance No acute event since yesterday Tolerating oral intake Exam/Review of Systems Vital Signs Vitals Vital Signs Date Time Temp Pulse Resp B/P Pulse Ox O2 Delivery O2 Flow Rate FiO2 09/01/16 09:19 98.3 82 18 100/68 94 08/31/16 10:20 Room Air Intake and Output 08/31/16 08/31/16 09/01/16 15:00 23:00 07:00 Intake Total 1558 ml 950 ml Balance 1558 ml 950 ml Exam General: The patient is well-developed, Not in acute distress. HEENT: Atraumatic, normocephalic. The pupils are equal and round . Neck: Supple with full range of motion. Chest: Normal expansion of the thorax during inspiration Lungs: Clear to auscultation bilaterally Heart: Normal S1-S2, Regular rhythm and rate. Abdomen: Soft , nontender, nondistended , bowel sounds are present. Extremities: Normal to inspection, no edema no cyanosis Neurologic: The patient is awake, alert , episodes of hallucination and delusion Results Result Diagram: 08/29/16 0555 08/28/16 0445 Medications Medications Current Medications Olanzapine (Zyprexa) 5 mg DAILY PO Last administered on 08/31/16 10:12; Admin Dose 5 MG; Start 08/28/16 at 09:00 Clonazepam (Klonopin) 2 mg TID PO Last administered on 09/01/16 08:48; Admin Dose 2 MG; Start 08/27/16 at 21:00 Methadone HCl (Methadone Liq) 16 mg DAILY PO Last administered on 09/01/16 08: 49; Admin Dose 16 MG; Start 08/28/16 at 10:30 Ondansetron HCl (Zofran Inj) 4 mg Q6H PRN IV NAUSEA AND/OR VOMITING; Start 06/03 at 14:00 Acetaminophen (Tylenol Tab) 650 mg Q6H PRN PO PAIN LEVEL 1-3 OR FEVER; Start at 14:00 Acetaminophen (Tylenol Supp) 650 mg Q6H PRN [place] PAIN LEVEL 1-3 OR FEVER; Start 08/27/16 at 14:00 Acetaminophen/ Hydrocodone Bitart ([place] (5/325)) 1 tab Q6H PRN PO MODERATE PAIN LEVEL 4-6 Last administered on 08/31/16 22:39; Admin Dose 1 TAB; Start 06/03 at 14:00 Docusate Sodium (Colace) 100 mg Q12H PRN PO CONSTIPATION; Start 08/27/16 at 14: 00 Bisacodyl (Dulcolax Supp) 10 mg DAILY PRN [place] CONSTIPATION; Start 08/27/16 at 14 :00 Famotidine (Pepcid) 20 mg Q12 PO Last administered on 09/01/16 08:48; Admin Dose 20 MG; Start 08/27/16 at 21:00 Enoxaparin Sodium (Lovenox) 40 mg DAILY SC ; Start 08/28/16 at 09:00 Haloperidol (Haldol) 5 mg Q8 PRN IM AGITATION Last administered on 08/29/16 02 :16; Admin Dose 5 MG; Start 08/28/16 at 13:00 Diphenhydramine HCl (Benadryl) 50 mg Q8 PRN IM SLEEP Last administered on 03:32; Admin Dose 50 MG; Start 08/28/16 at 13:00 Lorazepam (Ativan) 2 mg Q8 PRN IM AGITATION Last administered on 08/30/16 01: 28; Admin Dose 2 MG; Start 08/28/16 at 13:00 Lorazepam (Ativan) 1 mg Q3 PRN IV agitation Last administered on 08/31/16 04: 03; Admin Dose 1 MG; Start 08/29/16 at 02:30 Guaifenesin (Robitussin Liquid Cup) 200 mg Q6H PRN PO COUGH; Start 08/31/16 at 15:30 Nicotine (Nicoderm 14 Mg/ 24hr) 1 patch DAILY TRANSDERM ; Start 09/01/16 at 09: 00 DEBBIE BARON MD Sep 01, 2016 12:21
[2016-09-01] MEDS: LORAZEPAM 2 MG INJ IM PRN (20:09)
[2016-09-01] MEDS: HYDROCODONE/APAP (5/325) TAB PO PRN (21:48)
[2016-09-02] MEDS: HYDROCODONE/APAP (5/325) TAB PO PRN ×2 (06:45→14:27)
[2016-09-02 08:30] VITALS: BP 100/67; RESP 16
[2016-09-02] MEDS: clonAZEPAM 0.5 MG TAB PO SCH ×3 (08:33→21:00)
[2016-09-02] MEDS: FAMOTIDINE 20 MG TAB PO SCH ×3 (08:33→21:00)
[2016-09-02] MEDS: METHADONE (1 MG/ML 5 ML PO UD SYG) PO SCH (08:33)
[2016-09-02] MEDS: OLANZAPINE 5 MG TAB PO SCH ×2 (08:33→08:38)
[2016-09-02] MEDS: NICOTINE (14 MG/24 HR) PATCH TRANSDERM SCH (08:38)
[2016-09-02] MEDS: ENOXAPARIN 40 MG/0.4 ML SYG SC SCH (08:38)
--- NOTE | 2016-09-02 13:30 | PN ---
DATE: 09/02/2016 INTERNAL MEDICINE FOLLOWUP SUBJECTIVE: Chart reviewed. No significant events noted. PHYSICAL EXAMINATION: VITAL SIGNS: Blood pressure 100/67, pulse 78, respirations 16, temperature 97.5. Currently saturat ing 94% on room air. HEENT: Pupils are equal and reactive to light. NECK: Supple, no JVD noted. No cervical adenopathy noted. No carotid bruits heard. LUNGS: Diminished breath sounds bilaterally. CARDIOVASCULAR: S1, S2 normal. ABDOMEN: Soft, nontender. No organomegaly or masses noted. EXTREMITIES: No clubbing or cyanosis noted. NEUROLOGIC: No changes. IMPRESSION: 1. Chronic obstructive pulmonary disease exacerbation. 2. Schizophrenia. 3. History of heroin abuse. RECOMMENDATIONS: 1. Continue current treatment. 2. Discharge planning for transfer to a psychiatric unit in process. Dictated By: STAR RENAE MD, MA/MARYLOU Conf#: [id number] DID#: [id number]
[2016-09-02 20:54] VITALS: BP 92/52; RESP 16
[2016-09-03] MEDS: clonAZEPAM 0.5 MG TAB PO SCH ×5 (00:14→22:35)
[2016-09-03] MEDS: FAMOTIDINE 20 MG TAB PO SCH ×4 (00:14→22:38)
[2016-09-03] MEDS: NICOTINE (14 MG/24 HR) PATCH TRANSDERM SCH (09:00)
[2016-09-03] MEDS: ENOXAPARIN 40 MG/0.4 ML SYG SC SCH (09:00)
[2016-09-03] MEDS: METHADONE (1 MG/ML 5 ML PO UD SYG) PO SCH (09:27)
[2016-09-03] MEDS: OLANZAPINE 5 MG TAB PO SCH (09:27)
[2016-09-03] MEDS: HYDROCODONE/APAP (5/325) TAB PO PRN ×2 (13:51→22:36)
--- NOTE | 2016-09-03 16:44 | PN ---
DATE: 09/03/2016 SUBJECTIVE: Chart reviewed. No significant events noted. We are still awaiting a bed in [facility]. Currently, saturating 94%. PHYSICAL EXAMINATION: VITAL SIGNS: Blood pressure 92/52, pulse 80, respirations 16, temperature 97.9. HEENT: Pupils are equal and reactive to light. NECK: Supple, no JVD noted, no cervical adenopathy, no carotid bruits heard. LUNGS: Fair breath sounds bilaterally. CARDIOVASCULAR: S1, S2 normal. ABDOMEN: Soft, nontender. No organomegaly or masses noted. EXTREMITIES: No clubbing or cyanosis noted. NEUROLOGIC: No changes. IMPRESSION: 1. Chronic obstructive pulmonary disease exacerbation. 2. Schizophrenia. 3. History of heroin abuse. RECOMMENDATIONS: 1. Continue current treatment. 2. Bronchodilators. 3. Await discharge planning in process for transfer to a psychiatric unit. Dictated By: STAR RENAE MD, MA/MARYLOU Conf#: [id number] DID#: [id number] CC: DEBBIE BARON MD;*EndCC*
[2016-09-03 20:12] VITALS: BP 93/54; RESP 17
[2016-09-04 07:56] VITALS: BP 92/53; PULSE 81; RESP 18
[2016-09-04] MEDS: NICOTINE (14 MG/24 HR) PATCH TRANSDERM SCH (09:00)
[2016-09-04] MEDS: ENOXAPARIN 40 MG/0.4 ML SYG SC SCH (09:00)
[2016-09-04] MEDS: OLANZAPINE 5 MG TAB PO SCH (09:00)
[2016-09-04 09:45] VITALS: BP 101/62; PULSE 100
[2016-09-04] MEDS: METHADONE (1 MG/ML 5 ML PO UD SYG) PO SCH (09:49)
[2016-09-04] MEDS: clonAZEPAM 0.5 MG TAB PO SCH ×3 (09:50→20:09)
--- NOTE | 2016-09-04 12:05 | PSY ---
Date/Time of Note Date/Time of Note DATE: 09/04/16 TIME: 12:00 Psychiatric Subjective Eval Subjective Evaluation Patient location: inpatient Chief Complaint: sob this morning after receiving her dose of methadone at the methadone cli Reason for consult: hallucinations History of present illness patient is a 50 yo female with PPH Of depression, anxiety and opiate abuse on methadone who was sent to the ER from her methadone clinic where she was disorganized and psychotic, IN the ER she continued to be disorganized and she was admitted to the medical unit due to COPD exacerbation. Pt was seen by Dr Carmona in ED, there she was totally delusional, talking about witnessing a friend being cooked in a microwave and her organs being removedsa from her body and having had a lobotomy and a chip put in her head with people controlling her , she is responding to internal stimuli, pressured, with flight of ideas, illogical, yelling and cursing at staff. Today she is labile, quickly angered then offered other then bezos meds, started yelling about me hypnotizing her, became loud and agitated; she denies any si or hi. Past psychiatric history multipl einpt Hospitalization: yes Family History denies Medical history Problems Medical Problems: (1) COPD exacerbation Status: Acute (2) Psychosis Status: Acute (3) Shortness of breath Status: Acute Allergies: Coded Allergies: Sulfa (Sulfonamide Antibiotics) (Verified Allergy, Mild, 12/07/10) Substance Abuse Substance abuse history: Yes Prior substance abuse treatmen: Yes Social History Marital status: single Level of education: hs DPA/Conservatorship: No Occupation/Shelter: unemployed Psychiatric Objective Eval Mental Status Examination: Appearance: Disheveled Eye Contact: Good Psychomotor Activity: Agitated Behavior: Hostile Speech: Disorganized, Loud AFFECT: Anxious Mood: Irritable Though Process: Tangential Thought Content: Delusions Suicidal: No Homicidal: No On 72 hour hold: No Orientation: x3 Cognition: Alert Insight: Impared Judgement: Impared Laboratory Results Laboratory Tests Test 09/04/16 09:32 Lab Scanned Report REFERENCE [id number] Assessment and Plan Assessment/Diagnosis Jackson I: SCHIZOPHRENIA, PARNOID TYPE, CHRONIC. OPIOID DEPENDENCE Jackson II: DEFERED Jackson III: COPD Jackson IV: SEVERE Jackson V: GAF 25 Recommendation/Plan Medication Management CONITNUE CURRENT MEDS; CONSIDER MOOD STABILIZER: DEPAKOTE 250 MG PO BID, INCREASE TO 500 MG PO BID IN 3 DAYS. Psychotherapy DEFER TO INPT Follow-up/Disposition TRANSFER TO INPT PSYCH FOR GD [id number] Recommendation: Continue Hold NATALEE GUZMÁN MD Sep 04, 2016 12:05
--- NOTE | 2016-09-04 15:42 | PN ---
Date/Time of Note Date/Time of Note DATE: 09/04/16 TIME: 15:41 Assessment/Plan VTE Prophylaxis VTE Prophylaxis Intervention: SCD's Lines/Catheters IV C[facility]ter Type (from [facility]): PICC Line Central line still needed: Yes Urinary Cath still in place: No Assessment/Plan Chief Complaint/Hosp Course ASSESSMENT AND PLAN: 1. Chronic obstructive pulmonary disease exacerbation. Continue breathing treatment as needed 2. History of heroin abuse, on methadone. 3. Psychosis/schizophrenia. The patient will be started on Zyprexa , status post evaluation by telemetry psych, has been refusing her meds 4. For deep venous thrombosis prophylaxis, placed the patient on Lovenox. We will continue to monitor patient closely. Further recommendations, management, and treatment as per clinical course. Patient is stable as medical standpoint to be transferred to psych unit Problems: Subjective 24 Hr Interval Summary Free Text/Dictation Patient continues to have hallucinations and delusions Denies any chest pain or shortness of breath Tolerating oral intake Exam/Review of Systems Vital Signs Vitals Vital Signs Date Time Temp Pulse Resp B/P Pulse Ox O2 Delivery O2 Flow Rate FiO2 09/04/16 09:45 100 101/62 09/04/16 07:56 98.2 18 95 Room Air Intake and Output 09/03/16 09/03/16 09/04/16 15:00 23:00 07:00 Intake Total 950 ml 520 ml Balance 950 ml 520 ml Exam General: The patient is well-developed, Not in acute distress. HEENT: Atraumatic, normocephalic. The pupils are equal and round . Neck: Supple with full range of motion. Chest: Normal expansion of the thorax during inspiration Lungs: Clear to auscultation bilaterally Heart: Normal S1-S2, Regular rhythm and rate. Abdomen: Soft , nontender, nondistended , bowel sounds are present. Extremities: Normal to inspection, no edema no cyanosis Neurologic: Positive for hallucinations,The patient is awake, alert and oriented . Results Results 24 hrs Laboratory Tests Test 09/04/16 09:32 Lab Scanned Report REFERENCE LAB Medications Medications Current Medications Olanzapine (Zyprexa) 5 mg DAILY PO Last administered on 09/03/16 09:27; Admin Dose 5 MG; Start 08/28/16 at 09:00 Clonazepam (Klonopin) 2 mg TID PO Last administered on 09/04/16 12:23; Admin Dose 2 MG; Start 08/27/16 at 21:00 Methadone HCl (Methadone Liq) 16 mg DAILY PO Last administered on 09/04/16 09: 49; Admin Dose 16 MG; Start 08/28/16 at 10:30 Ondansetron HCl (Zofran Inj) 4 mg Q6H PRN IV NAUSEA AND/OR VOMITING; Start 06/03 at 14:00 Acetaminophen (Tylenol Tab) 650 mg Q6H PRN PO PAIN LEVEL 1-3 OR FEVER; Start at 14:00 Acetaminophen (Tylenol Supp) 650 mg Q6H PRN NE PAIN LEVEL 1-3 OR FEVER; Start 08/27/16 at 14:00 Acetaminophen/ Hydrocodone Bitart ([place] (5/325)) 1 tab Q6H PRN PO MODERATE PAIN LEVEL 4-6 Last administered on 09/03/16 22:36; Admin Dose 1 TAB; Start 06/03 at 14:00 Docusate Sodium (Colace) 100 mg Q12H PRN PO CONSTIPATION; Start 08/27/16 at 14: 00 Bisacodyl (Dulcolax Supp) 10 mg DAILY PRN NE CONSTIPATION; Start 08/27/16 at 14 :00 Famotidine (Pepcid) 20 mg Q12 PO Last administered on 09/03/16 09:27; Admin Dose 20 MG; Start 08/27/16 at 21:00 Enoxaparin Sodium (Lovenox) 40 mg DAILY SC ; Start 08/28/16 at 09:00 Haloperidol (Haldol) 5 mg Q8 PRN IM AGITATION Last administered on 08/29/16 02 :16; Admin Dose 5 MG; Start 08/28/16 at 13:00 Diphenhydramine HCl (Benadryl) 50 mg Q8 PRN IM SLEEP Last administered on 03:32; Admin Dose 50 MG; Start 08/28/16 at 13:00 Lorazepam (Ativan) 2 mg Q8 PRN IM AGITATION Last administered on 09/01/16 20: 09; Admin Dose 2 MG; Start 08/28/16 at 13:00 Lorazepam (Ativan) 1 mg Q3 PRN IV agitation Last administered on 08/31/16 04: 03; Admin Dose 1 MG; Start 08/29/16 at 02:30 Guaifenesin (Robitussin Liquid Cup) 200 mg Q6H PRN PO COUGH; Start 08/31/16 at 15:30 Nicotine (Nicoderm 14 Mg/ 24hr) 1 patch DAILY TRANSDERM ; Start 09/01/16 at 09: 00 DEBBIE BARON MD Sep 04, 2016 15:42
[2016-09-04] MEDS: HYDROCODONE/APAP (5/325) TAB PO PRN (16:56)
[2016-09-04] MEDS: FAMOTIDINE 20 MG TAB PO SCH (20:09)
[2016-09-04] MEDS: LORAZEPAM 2 MG INJ IV PRN (20:09)
[2016-09-04 20:34] VITALS: BP 102/66; RESP 20
[2016-09-05] MEDS: METHADONE (1 MG/ML 5 ML PO UD SYG) PO SCH (08:11)
[2016-09-05] MEDS: FAMOTIDINE 20 MG TAB PO SCH (08:11)
[2016-09-05] MEDS: ENOXAPARIN 40 MG/0.4 ML SYG SC SCH (08:11)
[2016-09-05] MEDS: OLANZAPINE 5 MG TAB PO SCH (08:11)
[2016-09-05] MEDS: clonAZEPAM 0.5 MG TAB PO SCH ×2 (08:11→12:23)
[2016-09-05] MEDS: NICOTINE (14 MG/24 HR) PATCH TRANSDERM SCH (08:12)
[2016-09-05] MEDS: LORAZEPAM 2 MG INJ IV PRN (11:14)
[2016-09-05] MEDS ORDERED: CARISOPRODOL 350 MG TAB PO PRN (13:00)
--- NOTE | 2016-09-05 15:43 | DS ---
Date/Time of Note Date/Time of Note DATE: 09/05/16 TIME: 15:39 Discharge Summary Admission/Discharge Info Admit Date/Time Aug 27, 2016 at 12:49 Discharge Date/Time Sep 05, 2016 at 13:30 Final Diagnosis 1. Chronic obstructive pulmonary disease exacerbation. 2. History of heroin abuse, on methadone. 3. Psychosis/schizophrenia. status post evaluation by telemetry psych, Patient Condition: Fair Consults Telemetry psych Hospital Course This is a 50-year-old female with past medical history of COPD, heroin abuse in remission on methadone, psychosis, schizophrenia who presented to [facility] this morning secondary to having shortness of breath after she received a dose of methadone. The patient's history is limited secondary to patient appears to have an acute psychosis and the patient is having hallucinations and delusion, stating that they have put bugs through her arms and other people are trying to control her. Patient was seen and evaluated by telemetry psych and was admitted and was started on breathing treatment. After evaluation by telemetry psych , it was recommended that the patient be transferred to psychiatry unit although unfortunately due to limited space patient transfer was limited. Patient was awake alert and oriented to self place and time although she did have episodes of hallucinations delusions. This morning it was found by the nurses and patient has eloped, [employer] was contacted. Home Meds Active Scripts Salmeterol Xinaf/Fluticasone* (Advair*) 250-50 Diskus Inhaler, 1 INH INHALATION BID, #1 INHALER Prov:DEBBIE BARON MD 08/29/16 Albuterol Sulfate* (Proair HFA*) 8.5 Gm Hfa.aer.ad, 2 PUFF INH Q4H Y for WHEEZING AND SOB, #1 INHALER Prov:DEBBIE BARON MD 08/29/16 Docusate Sodium (Dok) 100 Mg Capsule, 100 MG PO Q12H Y for CONSTIPATION for 1 Day, CAP Prov:DEBBIE BARON MD 08/29/16 Lorazepam (Lorazepam) 2 Mg/1 Ml Vial, 2 MG IM Q8 Y for AGITATION, #1 VIAL Prov:DEBBIE BARON MD 08/29/16 Olanzapine* (Zyprexa*) 5 Mg Tablet, 5 MG PO DAILY for 1 Day, TAB Prov:DEBBIE BARON MD 08/29/16 Reported Medications Methadone Hcl* (Methadone*) 10 Mg Tab, 16 MG PO DAILY, TAB PER PT GETS RX AT [facility] ON [address] 08/27/16 Clonazepam* (Clonazepam*) 2 Mg Tablet, 2 MG PO TID, TAB 08/27/16 DEBBIE BARON MD Sep 05, 2016 15:43
== END 2016-09-05 13:30 | disposition left against medical advice (07) | DRG 191 ==
LOC: E/R 10:35 → PP2 12:49 → TEL 08-29 02:06 → PP2 08-31 02:24
PROVIDERS: ADMIT Family Medicine; ATTEND Family Medicine
DX: J44.1 Chronic obstructive pulmonary disease with (acute) exacerbation (principal); F23 Brief psychotic disorder; F11.20 Opioid dependence, uncomplicated; F20.0 Paranoid schizophrenia; F17.200 Nicotine dependence, unspecified, uncomplicated
CPT/HCPCS: 36569; 71010; 76937; 80048; 80053; 80306; 80307; 83735; 84484; 85025; 87081; 87400; 94664; 96372; J0456; J1200; J1630; J1642; J1650; J2060; J2930; J7030

== ENCOUNTER 2016-09-08 17:24 | Emergency (ER) | payer OTHER ==
[~2016-09-08] VITALS: Ht 162.6 cm; Wt 45.0 kg
[~2016-09-08 17:24] MED LIST changes: +ADV25050 INHALATION; +ALBU8.5H3 INH; -CLON2TAB15; +CLON2TAB3 PO; +DOCU-216 PO; +LORA2VIA3 IM; -METH-378; +METH10TA2 PO; +OLAN5TAB5 PO
[2016-09-08 17:30] VITALS: Ht 162.6 cm; Wt 45.0 kg
[2016-09-08] MEDS ORDERED: OLAN5TAB68 PO (17:53)
[2016-09-08] MEDS ORDERED: OLANZAPINE (ODT) 5 MG TAB ODT ONE (18:00)
--- NOTE | 2016-09-08 19:07 | ERD ---
ER Documentation Chief Complaint Date/Time DATE: 09/08/16 TIME: 19:04 Chief Complaint BIB RA FOR EVAL OF AGITATION. HPI Patient is a 50-year-old female with seizures who presents saying "I think him being dissected". She was brought in by ambulance. She denies any psychiatric history. She denies suicidal or homicidal ideation. Upon review of old medical record she has been here multiple times for various complaints. She is well-known to myself into our staff. ROS All systems reviewed and are negative except as per history of present illness. Medications Home Meds Active Scripts Olanzapine* (Zyprexa* Zydis) 5 Mg Tab, 5 MG PO DAILY, #7 TAB Prov:EMMANUEL VALLEJO MD 09/08/16 Albuterol Sulfate* (Proair HFA*) 8.5 Gm Hfa.aer.ad, 2 PUFF INH Q4H Y for WHEEZING AND SOB, #1 INHALER Prov:DEBBIE BARON MD 08/29/16 Reported Medications Methadone Hcl* (Methadone*) 10 Mg Tab, 15 MG PO DAILY, TAB PER PT GETS RX AT [facility] ON [address] 08/27/16 Discontinued Reported Medications Clonazepam* (Clonazepam*) 2 Mg Tablet, 2 MG PO TID, TAB 08/27/16 Discontinued Scripts Salmeterol Xinaf/Fluticasone* (Advair*) 250-50 Diskus Inhaler, 1 INH INHALATION BID, #1 INHALER Prov:DEBBIE BARON MD 08/29/16 Docusate Sodium (Dok) 100 Mg Capsule, 100 MG PO Q12H Y for CONSTIPATION for 1 Day, CAP Prov:DEBBIE BARON MD 08/29/16 Lorazepam (Lorazepam) 2 Mg/1 Ml Vial, 2 MG IM Q8 Y for AGITATION, #1 VIAL Prov:DEBBIE BARON MD 08/29/16 Olanzapine* (Zyprexa*) 5 Mg Tablet, 5 MG PO DAILY for 1 Day, TAB Prov:DEBBIE BARON MD 08/29/16 Allergies Allergies: Coded Allergies: Sulfa (Sulfonamide Antibiotics) (Verified Allergy, Mild, 09/08/16) PMhx/Soc Hx Respiratory Disorders: Yes (COPD) Hx Cardiac Disorders: No (Denies) Hx Psychiatric Problems: Yes (Psychosis, hallucinating) Hx Tobacco Use: Yes Smoking Status: Current every day smoker FmHx Family History: No diabetes Physical Exam Vitals Vital Signs Date Time Temp Pulse Resp B/P Pulse Ox O2 Delivery O2 Flow Rate FiO2 09/08/16 17:30 98.2 105 19 130/75 98 Physical Exam Const: No acute distress, cachectic Head: Atraumatic Eyes: Normal Conjunctiva ENT: Normal External Ears, Nose and Mouth. Neck: Full range of motion..~ No meningismus. Resp: Clear to auscultation bilaterally Cardio: Regular rate and rhythm, no murmurs Abd: Soft, non tender, non distended. Normal bowel sounds Skin: No petechiae or rashes Back: No midline or flank tenderness Ext: No cyanosis, or edema Neur: Awake and alert Psych: Patient appears to be having delusions however denies suicidal or homicidal ideation and does not appear to be a danger to herself or others at this time Results 24 hrs Current Medications Medications (Trade) Dose Ordered Sig/Kallie Route PRN Reason Start Time Stop Time Status Last Admin Dose Admin Olanzapine (Zyprexa Zydis) 5 mg ONCE ONCE ODT 09/08/16 18:00 09/08/16 18:01 DC Procedures/MDM Smoking Cessation Therapy: Pt. was lectured for greater than 3 minutes on the health risks of continued smoking and the benefits of cessation. Patient is a 50-year-old female who presents with what appears to be a psychosis. The patient however appears stable and denies suicidal or homicidal ideation. At this point the patient was given Zyprexa. I do not believe she requires a 5150 hold at this time. I believe outpatient management is appropriate. She can follow-up with outpatient psychiatric resources. She can return sooner for any worsening symptoms. I do not believe that she is a danger to herself or to others at this time. Departure Diagnosis: Primary Impression: Psychosis Psychosis type: unspecified psychosis type Qualified Code: F29 - Psychosis, unspecified psychosis type Condition: Fair Patient Instructions: Psychosis Referrals: COMMUNITY CLINICS YOU HAVE RECEIVED A MEDICAL SCREENING EXAM AND THE RESULTS INDICATE THAT YOU DO NOT HAVE A CONDITION THAT REQUIRES URGENT TREATMENT IN THE EMERGENCY DEPARTMENT. FURTHER EVALUATION AND TREATMENT OF YOUR CONDITION CAN WAIT UNTIL YOU ARE SEEN IN YOUR DOCTORS OFFICE WITHIN THE NEXT 1-2 DAYS. IT IS YOUR RESPONSIBILITY TO MAKE AN APPOINTMENT FOR FOLOW-UP CARE. IF YOU HAVE A PRIMARY DOCTOR --you should call your primary doctor and schedule an appointment IF YOU DO NOT HAVE A PRIMARY DOCTOR YOU CAN CALL OUR PHYSICIAN REFERRAL HOTLINE AT IF YOU CAN NOT AFFORD TO SEE A PHYSICIAN YOU CAN CHOSE FROM THE FOLLOWING [facility] [address] [facility] [address] [facility] [address] [facility] [address] [facility] [address] [facility] [address] Additional Instructions: SPECIALIST: YOU HAVE A MEDICAL CONDITION WHICH REQUIRES YOU TO SEE A SPECIALIST WITHIN THE NEXT 1-2 DAYS. PLEASE FOLLOW UP WITH YOUR PRIMARY PHYSICIAN FOR REFFERAL.IF YOU DO NOT HAVE A PRIMARY CARE PHYSICIAN AND/OR YOU CAN NOT AFFORD TO SEE A PHYSICIAN THE FOLLOWING RESOURCES HAVE BEEN SUPPLIED TO YOU. IT IS YOUR RESPONSIBILITY TO BE SEEN BY THE SPECIALIST EMMANUEL VALLEJO MD Sep 08, 2016 19:06
[2016-09-08 19:29] VITALS: BP 127/84; PULSE 101; RESP 16; TEMP 97.6
[2016-09-08] MEDS ORDERED: CLON2TAB3 PO (22:26)
== END 2016-09-08 19:30 | disposition home or self-care (01) ==
LOC: E/R 17:24
DX: F29 Unspecified psychosis not due to a substance or known physiological condition (principal); J44.9 Chronic obstructive pulmonary disease, unspecified
CPT/HCPCS: Z7502; Z7610; 99283

== ENCOUNTER 2016-09-08 22:08 | Emergency (ER) | payer OTHER ==
[~2016-09-08] VITALS: Ht 154.9 cm; Wt 40.9 kg
[~2016-09-08 22:08] MED LIST changes: +OLAN5TAB68 PO
[2016-09-08] MEDS ORDERED: CLON2TAB3 PO (22:26)
[2016-09-08 22:30] VITALS: Ht 154.9 cm; Wt 40.9 kg
--- NOTE | 2016-09-08 22:37 | PSY ---
Date/Time of Note Date/Time of Note DATE: 09/08/16 TIME: 22:31 Psychiatric Subjective Eval Consent Pt consented to telemedicine: Yes Subjective Evaluation Patient location: emergency Chief Complaint: Snakes in my stopmach Reason for consult: Psychiatric evaluation History of present illness This is the second ER visit today for patient. She came in reporting psychosis and wanting to get pain medications. She is on methadone and clonazepam. Patient was discharged from the ER with plan to continue outpatient treatment but reported back to the ER. Patient states she has snakes in her belly and doesn't "want them fucking and making babies." She is somewhat sedated and a poor historian. However, she denies suicidal and homicidal ideation. She could not provide a plan for her own self care. I asked her several times how she planned on caring for herself when discharged from the hospital and she could not give a coherent answer. Past psychiatric history First reports no admissions. Later, reports multiple psychiatric admissions Hospitalization: yes Family History Unknown Medical history Problems Medical Problems: (1) COPD exacerbation Status: Acute (2) Psychosis Status: Acute (3) Psychosis Status: Acute (4) Shortness of breath Status: Acute Allergies: Coded Allergies: Sulfa (Sulfonamide Antibiotics) (Verified Allergy, Mild, 09/08/16) Substance Abuse Substance abuse history: Yes Prior substance abuse treatmen: Yes Social History Level of education: Unknown DPA/Conservatorship: No Occupation/Care Home: Not employed, homeless Psychiatric Objective Eval Mental Status Examination: Appearance: Poor Hygiene Eye Contact: Fair Psychomotor Activity: Slow Behavior: Guarded Speech: Soft, Slurred AFFECT: Flat Mood: Anxious Though Process: Perseverative Thought Content: Delusions Suicidal: No Homicidal: No On 72 hour hold: No Orientation: x3 Cognition: Drowsy Insight: Impared Judgement: Impared Attention Span: Distractible Assessment and Plan Assessment/Diagnosis [place] I: Unspecified Psychotic Disorder Recommendation/Plan Medication Management Per inpatient psychiatry Psychotherapy N/A Pt. Caregiver/Family Education N/A Follow-up/Disposition Recommend hold for grave disability. Second ER visit of the day, she is psychotic and cannot provide a plan for her own self care. 5150 Recommendation: Place Hold NAINA SALVADOR Sep 08, 2016 22:37
--- NOTE | 2016-09-08 23:06 | ERA ---
ER Documentation Chief Complaint Date/Time DATE: 09/08/16 TIME: 23:05 Chief Complaint [facility] HPI Patient is a 50-year-old female who presents saying "I have snakes to my stomach I will do not want him to have sex with each other". The patient was seen earlier today and had a psychosis. At that time she was not suicidal or homicidal the patient was discharged. However she returned and is still psychotic and will need transfer for psychiatric hold at this time. Please note the history and physical exam is limited secondary to the patient's psychosis. Upon review of old medical record she has had multiple visits for various complaints to the emergency department. ROS All systems reviewed and are negative except as per history of present illness. Medications Home Meds Active Scripts Olanzapine* (Zyprexa* Zydis) 5 Mg Tab, 5 MG PO DAILY, #7 TAB Prov:EMMANUEL VALLEJO MD 09/08/16 Reported Medications Clonazepam* (Clonazepam*) 2 Mg Tablet, 2 MG PO TID, TAB 09/08/16 Methadone Hcl* (Methadone*) 10 Mg Tab, 15 MG PO DAILY, TAB PER PT GETS RX AT [facility] [address] 08/27/16 Discontinued Reported Medications Clonazepam* (Clonazepam*) 2 Mg Tablet, 2 MG PO TID, TAB 08/27/16 Discontinued Scripts Salmeterol Xinaf/Fluticasone* (Advair*) 250-50 Diskus Inhaler, 1 INH INHALATION BID, #1 INHALER Prov:DEBBIE BARON MD 08/29/16 Albuterol Sulfate* (Proair HFA*) 8.5 Gm Hfa.aer.ad, 2 PUFF INH Q4H Y for WHEEZING AND SOB, #1 INHALER Prov:DEBBIE BARON MD 08/29/16 Docusate Sodium (Dok) 100 Mg Capsule, 100 MG PO Q12H Y for CONSTIPATION for 1 Day, CAP Prov:DEBBIE BARON MD 08/29/16 Lorazepam (Lorazepam) 2 Mg/1 Ml Vial, 2 MG IM Q8 Y for AGITATION, #1 VIAL Prov:DEBBIE BARON MD 08/29/16 Olanzapine* (Zyprexa*) 5 Mg Tablet, 5 MG PO DAILY for 1 Day, TAB Prov:DEBBIE BARON MD 08/29/16 Allergies Allergies: Coded Allergies: Sulfa (Sulfonamide Antibiotics) (Verified Allergy, Mild, 09/08/16) PMhx/Soc Hx Respiratory Disorders: Yes (COPD) Hx Cardiac Disorders: No (Denies) Hx Psychiatric Problems: Yes (Psychosis, hallucinating) Hx Tobacco Use: Yes FmHx Unable to obtain Physical Exam Physical Exam Const: No acute distress, cachectic Head: Atraumatic Eyes: Normal Conjunctiva ENT: Normal External Ears, Nose and Mouth. Neck: Full range of motion..~ No meningismus. Resp: Clear to auscultation bilaterally Cardio: Regular rate and rhythm, no murmurs Abd: Soft, non tender, non distended. Normal bowel sounds Skin: No petechiae or rashes Back: No midline or flank tenderness Ext: No cyanosis, or edema Neur: Awake Psych: Patient is having delusions, no suicidal or homicidal ideation Procedures/MDM Patient is a 50-year-old female who presents with acute psychosis. The patient will likely need transfer for a psychiatric hold. Her psychiatrist has seen the patient and feels the patient requires a 5150 hold for grave disability. The patient had laboratory studies which are pending for medical clearance. If these laboratory studies are normal the patient will need to be transferred for psychiatric treatment. At this point she has no suicidal or homicidal ideation but will need admission for grave disability. Departure Diagnosis: Primary Impression: Psychosis Qualified Code: F29 - Psychosis, unspecified psychosis type Condition: EMMANUEL Miller MD Sep 08, 2016 23:06
[2016-09-08 23:18] LABS: ADD UMIC YES; URINE BILIRUBIN (Dip) NEGATIVE (NEGATIVE); URINE BLOOD (Dip) NEGATIVE (NEGATIVE); URINE COLOR YELLOW (YELLOW); URINE GLUCOSE (Dip) NEGATIVE (NEGATIVE); URINE KETONES (Dip) NEGATIVE (NEGATIVE); URINE LEUKOCYTE ESTERASE (Dip) NEGATIVE (NEGATIVE); URINE NITRITE (Dip) NEGATIVE (NEGATIVE); URINE TOTAL PROTEIN (Dip) TRACE (NEGATIVE); URINE UROBILINOGEN (Dip) 0.2 E.U./dL (0.1-1.0)
[2016-09-08 23:26] LABS: BACTERIA,URINE FEW; MUCUS,URINE MANY; SQUAMOUS EPITHELIAL CELL,UR MODERATE; URINE RBCS NONE SEEN /HPF (0)
[2016-09-08 23:39] LABS: ADD SCAN DIFF NO
[2016-09-08 23:41] LABS: BASOPHILS % 0.3 % (0.0-2.0); EOSINOPHILS % 0.1 % (0.0-7.0); HEMATOCRIT 39.2 % (37.0-47.0); HEMOGLOBIN 12.9 g/dl (12.0-16.0); LYMPHOCYTES # 1.9 10^3/ul (0.8-2.9); LYMPHOCYTES % 19.6 % (15.0-51.0); MEAN CORPUSCULAR HEMOGLOBIN 29.7 pg (29.0-33.0); MEAN CORPUSCULAR HGB CONC 32.9 g/dl (32.0-37.0); MEAN CORPUSCULAR VOLUME 90.3 fl (82.0-101.0); MEAN PLATELET VOLUME 10.9 fl (7.4-10.4); MONOCYTE # 0.6 10^3/ul (0.3-0.9); NEUTROPHIL # 7.2 10^3/ul (1.6-7.5); NEUTROPHILS % 73.7 % (39.0-77.0); PLATELET COUNT 296 10^3/UL (140-415); RED BLOOD COUNT 4.34 10^6/ul (4.20-5.40); RED CELL DISTRIBUTION WIDTH 14.6 % (11.5-14.5); WHITE BLOOD COUNT 9.7 10^3/ul (4.8-10.8)
[2016-09-08 23:49] LABS: ALBUMIN 4.1 g/dl (3.3-4.9); CHLORIDE 106 mmol/L (97-110); SODIUM 142 mmol/L (135-144)
[2016-09-08 23:51] LABS: CREATININE 0.59 mg/dl (0.44-1.00)
[2016-09-08 23:52] LABS: ALANINE AMINOTRANSFERASE 45 IU/L (13-69); ALBUMIN/GLOBULIN RATIO 1.07; ALKALINE PHOSPHATASE 60 IU/L (42-121); ANION GAP 16 (8-16); ASPARTATE AMINO TRANSFERASE 45 IU/L (15-46); BILIRUBIN,INDIRECT 0.4 mg/dl (0-1.1); BILIRUBIN,TOTAL 0.4 mg/dl (0.2-1.3); BLOOD UREA NITROGEN 24 mg/dl (7-20); CARBON DIOXIDE 24 mmol/L (21-31); GLUCOSE 114 mg/dl (70-220); TOTAL PROTEIN 7.9 g/dl (6.1-8.1)
[2016-09-08 23:53] LABS: CALCIUM 9.5 mg/dl (8.4-10.2)
[2016-09-08 23:54] LABS: ACETAMINOPHEN < 10.0 ug/ml (10.0-30.0); ETHANOL < 10.0 mg/dl; SALICYLATE < 1.0 mg/dl (5.0-30.0)
[2016-09-09 22:20] LABS: BENZODIAZEPINES Negative (NEGATIVE)
[2016-09-09 22:21] LABS: BARBITURATES Negative (NEGATIVE); CANNABINOIDS Negative (NEGATIVE)
[2016-09-09 22:22] LABS: COCAINE Negative (NEGATIVE)
[2016-09-09 22:25] LABS: OPIATES Negative (NEGATIVE)
[2016-09-11] MEDS ORDERED: CLON2TAB3 PO (18:54)
[2016-09-11 19:00] VITALS: BP 110/60; PULSE 72; RESP 20; TEMP 98.3
[2016-09-11] MEDS ORDERED: clonAZEPAM 0.5 MG TAB PO ONE (19:30)
[2016-09-12] MEDS ORDERED: MECL12.574 PO (07:12)
== END 2016-09-11 19:52 | disposition home or self-care (01) ==
LOC: E/R 22:08
DX: F29 Unspecified psychosis not due to a substance or known physiological condition (principal)
CPT/HCPCS: 80053; 80306; 80307; 81001; 85025; Z7502; Z7610; 81003

== ENCOUNTER 2016-09-12 06:10 | Emergency (ER) | payer OTHER ==
[~2016-09-12] VITALS: Ht 162.6 cm; Wt 37.0 kg
[~2016-09-12 06:10] MED LIST changes: -ADV25050 INHALATION; -ALBU8.5H3 INH; -DOCU-216 PO; -LORA2VIA3 IM; -OLAN5TAB5 PO
[2016-09-12 06:13] VITALS: Ht 162.6 cm; Wt 37.0 kg
[2016-09-12] MEDS ORDERED: MECLIZINE 12.5 MG TAB PO ONE (07:00)
[2016-09-12] MEDS ORDERED: MECL12.574 PO (07:12)
[2016-09-12 07:28] VITALS: BP 118/76; PULSE 68; RESP 20; TEMP 97.7
--- NOTE | 2016-09-12 09:58 | ERD ---
DATE OF SERVICE: HISTORY OF PRESENT ILLNESS: The patient is a 50-year-old female complaining of dizziness. She stat es that she was recently discharged today from the ER. She was sent home and began feeling dizzy. She denies chest pain, denies vomiting, denies fever, denies headache, denies shortness of breath. She states that she has not had this before. She is not taking medications for her symptoms. She s tates it has been going on for about a week. PAST MEDICAL HISTORY: Denies any other medical problems. ALLERGIES: DENIES ALLERGIES TO MEDICATIONS. PAST SURGICAL HISTORY: Denies. SOCIAL HISTORY: Smokes cigarettes, drug use of methadone and Klonopin. REVIEW OF SYSTEMS: A 12-point review of systems was done. Refer to HPI for positives, all other sy stems negative. PHYSICAL EXAMINATION VITAL SIGNS: Temperature is 97.7, pulse 94, blood pressure 120/84, respiratory rate 20, O2 saturati on 100% on room air. Pain intensity is 0/10. GENERAL: The patient is well-appearing, well-nourished, no acute distress. HEART: Regular rate and rhythm. No murmurs, clicks, rubs or gallops. No S3 or S4. CHEST: Clear to auscultation bilaterally. There are no rales, wheezes or rhonchi. HEENT: Atraumatic. Conjunctivae are pink. Pupils equal, round, and reactive to light. There is no s cleral icterus. Tympanic membranes clear bilaterally. Oropharynx clear. No nystagmus or photophobia . SKIN: There is no apparent rash or petechia. The skin is warm and dry. NEUROLOGIC: Alert and oriented. Cranial nerves 2-12 intact. Motor strength in all 4 extremities wit h 5/5 strength. Sensation grossly intact. Normal speech and gait. Babinski negative. DTR 2+ through out. ABDOMEN: Soft, nontender and nondistended. Good bowel sounds. No rebound or guarding. No gross kaleb tonitis. No gross organomegaly or masses. No Guaman sign or McBurney point tenderness. EMERGENCY ROOM COURSE: The patient was given meclizine and p.o. challenge in the ER. The patient t olerated p.o. She was also seen eating. She is seen ambulating without difficulty and did not appe ar lethargic or confused. DIAGNOSIS: Dizziness. MEDICAL DECISION MAKING: I have low suspicion for cardiac emergencies. The patient's vital signs a re stable. The patient is not complaining of chest pain. I have low suspicion for neuro deficits o r intracranial hemorrhage. The patient's neuro exam is within normal limits and the patient has not had a history of traumatic injury. I have low suspicion for pulmonary emergency. The patient does have a history of COPD; however, oxygen saturation is 100% on room air. Lungs sounds are within no rmal limits. Exam was within normal limits. I felt the patient was stable for discharge as the pat ient was responding appropriately and did not appear toxic in nature. Vital signs remained stable. DISCHARGE: The patient is discharged stable. The patient is given a prescription for meclizine and told to follow up with primary care within 1 to 2 days for reevaluation. The patient was told if s ymptoms progress or worsen, to return to the ER. All other questions answered at time of discharge. Discharge summary given at the time of departure. The patient understood and complied with plan. Dictated By: AGUSTÍN HELTON for WALDO RODRIGUEZ/MARYLOU Conf#: [id number] DID#: [id number]
== END 2016-09-12 07:50 | disposition home or self-care (01) ==
LOC: FTE 06:10
DX: R42 Dizziness and giddiness (principal); F17.210 Nicotine dependence, cigarettes, uncomplicated; J44.9 Chronic obstructive pulmonary disease, unspecified
CPT/HCPCS: Z7502; Z7610; 99283

== ENCOUNTER 2017-07-31 15:10 | Outpatient (CLI) | END 2017-07-31 17:00 | disposition home or self-care (01) ==